=== PATIENT | male | born 1960 | race Caucasian/White ===

== ENCOUNTER → 2023-09-05 00:14 | Outpatient (CLI) | payer BC, SELFPAY ==
--- NOTE | 2023-09-05 | ETT_ITS ---
APPROVED REPORT Exam: Exercise Treadmill Patient Location: Out-Patient Room/Bed: Stress Nurse: Estee Ochoa RN Ordering Provider:CHAPITO VICENTE, Contact Number: [phone] BMI: 27.60 Baseline Rhythm: Sinus Rhythm Indications: Unspecified afib, Medical History Medical History: Chest pain, COPD, dyspnea, HLD, nicotine dependence, MALATHI, PAF, asthma, BPH, Walker-Bernice hnson Syndrome Cardiac Medications: None Allergies: Cephalosporins Cardiac Risk Factors: Family hx, asthma, HLD, COPD, former smoker Previous Cardiac Procedures: None Pretest Chest Pain Characteristics: None Exercise History: Physically active Physical Disabilities: None Lung Sounds: Clear to auscultation Heart Sounds: Regular Stress Test Details Test: Exercise stress testing was performed using a Adam protocol. Rest Stress HR Resting HR Supine: 60 bpm Max Heart Rate (APMHR): 155 bpm Resting HR Standin bpm Target HR (85% APMHR): 132 bpm Max HR Achieved: 135 bpm % of APMHR: 87 Recovery HR: 77 bpm HR response to stress: Normal HR response to stress BP Resting BP Supine: 140/84 mmHg Resting BP Standin/86 mmHg Max BP: 192/76 mmHg Recovery BP: 146/78 mmHg BP response to stress: Normal blood pressure response to stress. ECG Resting ECG: Sinus Rhythm Ectopy: None Stress ECG: Sinus Tachycardia ST Change: No significant ST segment changes noted Arrhythmia: None Recovery ECG: Sinus Rhythm Recovery ST Change: No significant ST segment changes noted Recovery Arrhythmia: None Clinical Reason for Termination: Target HR Achieved, Fatigue Stress Symptoms: General Fatigue Exercise duration: 09 min40 sec Highest Stage Reached: Stage 3: 3.4 mph at 14% grade. Exercise capacity: 11.24 METs Angina Score: None Gary Treadmill Score: 9.5 Rate Pressure Product: [id number] Stress ECG Conclusion 1. Resting electrocardiogram was normal 2. Patient exercised on the Adam protocol and completed workload of 11.24 METS 3. Normal heart rate and blood pressure response to exercise. The patient achieved 87% of predicted heart rate for age 4. There was no electrocardiographic evidence of myocardial ischemia 5. There were no significant dysrhythmias Gary Treadmill Score is 9.5 which is Low risk. Stress Test Summary STAGE Time (mins) Speed (mph) Grade (%) HR BP SpO2 SYMPTOMS METS Supine 60 140/84 96% Standing 67 138/86 1 3 1.7 10 86 160/78 97% 4.5 2 6 2.5 12 101 182/68 98% 7 3 9 3.4 14 133 98% 10 1 min recovery 103 192/76 97% 3 min recovery 70 174/76 98% 6 min recovery 77 146/78
== END ==
PROVIDERS: PCP Nurse Practitioner Family; Visit Provider Registered Nurse
DX: I48.91 Unspecified atrial fibrillation (principal)
CPT/HCPCS: 93017

== ENCOUNTER 2024-01-07 22:04 | Outpatient (REF) | payer BC, SELFPAY ==
[2024-01-07 21:55] LABS: Abs Immature Grans 0.03 10^3/uL (0.0-0.06); Absolute Basophil Count 0.04 10^3/uL (0.0-0.2); Absolute Eosinophil Count 0.32 10^3/uL (0.0-0.7); Absolute Lymphocyte Count 1.99 10^3/uL (1.2-3.4); Absolute Monocyte Count 0.39 10^3/uL (0.1-0.8); Absolute Neutrophil Count 4.63 10^3/uL (1.2-6.7); Basophils % 0.5 %; Eosinophils % 4.3 %; HCT 43.7 % (40.0-50.0); HGB 15.2 g/dL (13.5-17.5); Immature Grans % 0.4 %; Lymphocytes % 26.9 %; MCH 31.4 pg (27.0-33.0); MCHC 34.8 % (32.0-36.0); MCV 90 fL (80-95); MPV 10.6 fL (8.0-11.0); Monocytes % 5.3 %; Neutrophils % 62.6 %; Platelet Count 240 10^3/uL (130-400); RBC 4.84 10^6/uL (4.36-5.78); RDW 12.3 % (11.8-14.1); RDW-SD 40.2 fL
[2024-01-07 21:59] LABS: Anion Gap 7.5 mmol/L (3-11); BUN 20 mg/dL (7-18); CO2 26.5 mmol/L (21.0-32.0); CREATININE 0.9 mg/dL (0.70-1.30); Calcium 8.8 mg/dL (8.5-10.1); Chloride 104 mmol/L (98-107); Estimated GFR 94.78 (mL/min/1.73m2); Glucose 140 mg/dL (74-106); Potassium 3.7 mmol/L (3.5-5.1); Sodium 138 mmol/L (136-145)
== END 2024-01-07 22:05 | disposition home or self-care (01) ==
LOC: LBN 22:04
PROVIDERS: PCP Nurse Practitioner Family; Visit Provider Nurse Practitioner Family
DX: L03.90 Cellulitis, unspecified (principal)
CPT/HCPCS: 80048; 85025

== ENCOUNTER 2024-01-08 12:44 | Observation (INO) | payer BC, SELFPAY ==
[2024-01-08 12:45] VITALS: BP 143/80; PULSE 78; RESP 16; TEMP 36.3; O2SAT 95
--- NOTE | 2024-01-08 13:00 | DI.CT_ITS ---
Exam(s) CT UPPER EXTREMITY LT W EXAM: CT UPPER EXTREMITY LT W CLINICAL HISTORY: cellulitis in AC, worsening with systemic sx.. TECHNIQUE: Imaging Protocol: Axial computed tomography images with coronal and sagittal reformatted images were created and reviewed. CONTRAST MATERIAL: Intravenous: Omnipaque 350. Contrast Volume: 100 ML COMPARISON: No exams were available for comparison FINDINGS: Bones: The osseous structures and articular surfaces are intact. Bony alignment is satisfactory. N o evidence of osteomyelitis. The joint spaces are appropriate for the patient's age. No lytic or sc lerotic lesions are identified. Soft Tissues: No evidence of an abscess. There is mild infiltration of the subcutaneous fat along th e dorsum of the upper extremity. This may represent a cellulitis. The visualized lungs are clear. Enhancement: No abnormal enhancement is identified. IMPRESSION: 1. Possible mild cellulitis along the posterior aspect of the upper arm. No focal fluid collection i s seen to suggest an abscess. 2. No CT evidence of osteomyelitis. RADIATION DOSE DELIVERED: Total DLP Total DLP DATA REPOSITORY: All CT scans at this facility are submitted to the National Radiology Data Registry (NRDR) Dose Index Registry (DIR) with the [employer] (A[employer]). RADIATION OPTIMIZATION: All CT scans at this facility use at least one of these dose optimization te chniques: automated exposure control; mA and/or kV adjustment per patient size (includes targeted exa ms where dose is matched to clinical indication); or iterative reconstruction.
--- NOTE | 2024-01-08 13:11 | ED.GENADUL_ITS ---
Discharge Plan Discharge Details Chief Complaint: Cellulitis Primary Care Provider: Constance Bourgeois ED Provider: Adelia Cartagena Home Meds and New Rx's Prescriptions: No Action ibuprofen 200 mg capsule 200 mg PO Q6H PRN multivitamin Tablet 1 tab PO DAILY sulfamethoxazole-trimethoprim [Bactrim DS] 800-160 mg tablet 1 tab PO BID Qty: 14 0RF omega 6-ohq-etn-fish oil [Fish Oil] 60-90-500 mg capsule 1 cap PO DAILY albuterol sulfate 1.25 mg/3 mL solution for nebulization 1.25 mg inhalation QID PRN (Reason: shortness of breath or wheezing) Qty: 90 0RF albuterol sulfate 90 mcg/actuation HFA aerosol inhaler 2 puff inhalation Q6H PRN (Reason: shortness of breath or wheezing) Qty: 8.5 1RF HPI General Date/Time Provider Initiated Documentation: 01/08/24 12:45 . HPI Narrative: Marcin is a 63year old male who presents to the emergency department today for evaluation of worsening cellulitis to the left AC with tremors and generalized fatigue/malaise. He reports that 2 weeks ago he got a puncture wound from a stick that poked him at work through his sweatshirt. He developed redness immediately surrounding the area that evening, diagnosed with cellulitis on 1111 and treated with 5 days of Augmentin. He started having fatigue yesterday and increasing redness to the area, saw PCP at [facility] and started on Bactrim. Today he is feeling much more fatigued, general malaise, discomfort to the left AC and elbow with movement, and tenderness to his lymph nodes in his left axilla. His says that he is looking unwell, lower energy than his usual self. He denies recorded fever/chills, congestion, sore throat, cough, nausea/vomiting, recent ill contacts, distal numbness/tingling. Denies history of immunocompromise. He does have a history of drug-resistant infection in the past that required hospitalization for 12 days and IV antibiotics. He has been able to tolerate cephalosporins (keflex) IV in the past; does not think that he has a cephalosporin allergy despite it being on his record. Past medical history is significant for COPD, HLD, Walker-Don syndrome, and paroxysmal A-fib. Physical exam remarkable for tenderness and erythema to the left AC. He does have full range of motion to left elbow, but says that this causes discomfort. Approximately 5 mm diameter lesion noted to the ulnar aspect of the left AC, no active drainage. It is tender to palpation, no obvious area of induration underlying. Surrounding erythema approx 4 diameter around lesion. +pulses distally, brisk cap refill. No obvious axillary lymphadenopathy, though he does have tenderness with palpation of lymph nodes. Marcin does appear fatigued and flushed, he is alert and oriented, in no acute distress. D/dx includes but is not limited to: Cellulitis, abscess, extension of infection into deep space I independently interpreted the following tests: CRP elevated at 0.93. CBC, BMP, sed rate all unremarkable. While in the emergency department, Marcin received Toradol for discomfort with good improvement in pain. CT of left upper extremity reassuring, no abscess or local fluid collection noted. Patient has failed outpatient management with antibiotics x 2, will admit for IV antibiotics. Rocephin and vancomycin initiated. Discussed case with Dr. Miranda, hospitalist. He is agreeable plan of care. Related Data Home Medications ?Medication ?Instructions ?Recorded ?Confirmed ibuprofen 200 mg capsule 200 mg PO Q6H PRN 07/23/23 01/08/24 multivitamin 1 tab PO DAILY 07/23/23 01/08/24 albuterol sulfate 1.25 mg/3 mL 1.25 mg (3 mL) inhalation QID PRN 10/11/23 01/08/24 solution for nebulization shortness of breath or wheezing #90 mL albuterol sulfate 90 mcg/actuation 2 puff inhalation Q6H PRN 10/11/23 01/08/24 aerosol inhaler shortness of breath or wheezing #8.5 grams omega 2-olp-jug-fish oil 60 mg-90 1 cap PO DAILY 12/03/23 01/08/24 mg-500 mg capsule (Fish Oil) sulfamethoxazole 800 1 tab PO BID #14 tabs 01/07/24 01/08/24 mg-trimethoprim 160 mg tablet (Bactrim DS) Previous Rx's ?Medication ?Instructions ?Recorded albuterol sulfate 1.25 mg/3 mL 1.25 mg (3 mL) inhalation QID PRN 10/11/23 solution for nebulization shortness of breath or wheezing #90 mL albuterol sulfate 90 mcg/actuation 2 puff inhalation Q6H PRN 10/11/23 aerosol inhaler shortness of breath or wheezing #8.5 grams sulfamethoxazole 800 1 tab PO BID #14 tabs 01/07/24 mg-trimethoprim 160 mg tablet (Bactrim DS) Allergies Allergy/AdvReac Type Severity Reaction Status Date / Time Cephalosporins Allergy Intermediate Unknown Verified 01/08/24 13:37 General Stated Complaint: GenMedical JOAO: 3 Review of Systems Narrative: see HPI Exam Const General: cooperative, comfortable, no acute distress, well developed and ill appearing Nutritional Appearance: average body habitus Orientation: alert and oriented x3 Resp Effort & Inspection: normal respiratory effort and able to speak in complete sentences Skin Rashes: rashes noted left elbow borders, color with an erythematous base, tender and other (Approximately 4 inch diameter area of erythema and tenderness surrounding 5 mm shallow ulceration); fluctuant not assessed Full body images: 2 1. area of cellulitis Neuro General: patient alert, patient oriented x3, gait normal, tone normal, moves all extremities and no focal motor deficits Cognition: normal cognition Speech: speech normal Sensory Exam: no sensory deficits noted Extrem Left upper extremity: full ROM, normal capillary refill, no joint enlargement and elbow/forearm (warmth and swelling to cellulitis, L AC) Details: tenderness, swelling, warmth and distal pulses intact; no crepitus and no deformity Course Vital Signs Vital signs: Vital Signs Temperature 36.3 C L 01/08/24 12:45 Pulse 78 01/08/24 12:45 Respiratory Rate 16 01/08/24 12:45 Blood Pressure 143/80 H 01/08/24 12:45 Pulse Oximetry 95 01/08/24 12:45 Temperature 36.3 C L 01/08/24 12:45 Temperature Source Temporal Artery Scan 01/08/24 12:45 Pulse 78 01/08/24 12:45 Respiratory Rate 16 01/08/24 12:45 Respiratory Effort Normal, Non-Labored 01/08/24 12:51 Blood Pressure 143/80 H 01/08/24 12:45 Pulse Oximetry 95 01/08/24 12:45 Oxygen Delivery Method Room Air 01/08/24 12:45 Oxygen Flow Rate 0 01/08/24 12:45 Pain Level 7 01/08/24 12:45 Lab/Test Results Lab/Test Results: 01/08/24 13:09 Blood Blood Culture - Pending 01/08/24 13:09 Blood Blood Culture - Pending Medical Decision Making Imaging Data Radiologic Study: Radiologist's impression: Accession No. : [id number] Creator : TEE LINDA Dictator : TEE LINDA Predatory Animal Trapper : Brick Veneer Maker : TEE LINDA Approver2 : Report Date : 01/08/2024 14:28:29 * Exam(s) CT UPPER EXTREMITY LT W EXAM: CT UPPER EXTREMITY LT W CLINICAL HISTORY: cellulitis in AC, worsening with systemic sx.. TECHNIQUE: Imaging Protocol: Axial computed tomography images with coronal and sagittal reformatted images were created and reviewed. CONTRAST MATERIAL: Intravenous: Omnipaque 350. Contrast Volume: 100 ML COMPARISON: No exams were available for comparison FINDINGS: Bones: The osseous structures and articular surfaces are intact. Bony alignment is satisfactory. No evidence of osteomyelitis. The joint spaces are appropriate for the patient's age. No lytic or sclerotic lesions are identified. Soft Tissues: No evidence of an abscess. There is mild infiltration of the subcutaneous fat along the dorsum of the upper extremity. This may represent a cellulitis. The visualized lungs are clear. Enhancement: No abnormal enhancement is identified. IMPRESSION: 1. Possible mild cellulitis along the posterior aspect of the upper arm. No focal fluid collection is seen to suggest an abscess. 2. No CT evidence of osteomyelitis. Quality:SDOH Health Related Social Needs: 2 No Data to Display PFSH All Active Problems (Updated 12/20/23 @ 16:01 by Duncan Romero MD) Scrotal pain (Acute) Epididymal cyst (Acute) Generalized skin lesions (Acute) PAF (paroxysmal atrial fibrillation) (Acute) Lipomatosis dolorosa (Acute) Lateral epicondylitis (Acute) Insomnia (Acute) Glucose intolerance (impaired glucose tolerance) (Acute) Walker-Don syndrome (Acute) [place] lesion of lung (Acute) COPD (chronic obstructive pulmonary disease) (Chronic) Cervical spondylosis (Acute) BPH without urinary obstruction (Acute) Benign lipomatous tumor (Acute) Actinic keratosis (Acute) MALATHI (obstructive sleep apnea) (Chronic) Wearing CPAP every night Hypercholesteremia (Acute) Medical History Elevated bilirubin Pleuritic pain Right shoulder pain Exposure to asbestos Left cornea abrasion Surgical History H/O hernia repair Hx of cholecystectomy Family History Mother Hypertension Father Cancer Social History Smoking/Tobacco Use Status: Former Tobacco Use tobacco type: cigarettes Quit Date: 02/11/99 Quit status: has quit before Smoking risk assessment performed?: Yes Alcohol Intake: current Alcohol Intake frequency: a few times a week Alcohol type: beer Drug use: Rarely Substance use type: marijuana Adopted: No Household members: spouse Housing: house Number of Children: 3 number of grandchildren: 0 Communication Needs: None Education Level: college Details: BS Do you need help understanding health information?: Never current occupation: Retired Sexually active: Yes Do you think of yourself as: straight/heterosexual Current gender identity: male What is your relationship status?: How often do you talk on the phone with friends or family?: three or more times per week How often do you get together with friends or relatives?: three or more times per week How often do you attend advent or episcopal services?: 1-3 times per year Do you belong to any clubs or organized social groups?: no Panel score (0-1 are the most socially isolated patients): 2 What type of physical activity do you participate in: walking Duration: 45-60 minutes/day Frequency: daily Callie/Caodaism: Non cheondoism Special callie needs: No Seatbelt use: always Helmet use: Yes Helmet use: always Drive 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 or 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/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 Firearms in home: Yes Firearms unloaded and locked: Yes Do you feel safe at home: Yes Do you feel safe in your relationship?: Yes PAWSS Have you Been Recently Intoxicated or Drunk Within the Last 30 days?: No Have you Ever Experienced Previous Episodes of Alcohol Withdrawal?: No Have you ever Experienced Withdrawal Seizures?: No Have you ever Experienced Delirium Tremens(DT)s?: No Have you ever undergone Alcohol Rehabilitation Treatment (i.e, inpt ot outpatient treatment programs)?: No Have you ever Experienced Blackouts?: No Have you ever Combined Alcohol with other Downers within the last 90 days?: No Have you ever Combined Alcohol with any other Substance of Abuse during the last 90 days?: No Positive Blood Alcohol level on Presentation? [PCS.BAL]: No Evidence of Increased Autonomic Activity (i.e. HR>120, tremor, sweating, agitation, nausea)?: No Result: 0
[2024-01-08 13:32] LABS: Abs Immature Grans 0.04 10^3/uL (0.0-0.06); Absolute Basophil Count 0.02 10^3/uL (0.0-0.2); Absolute Eosinophil Count 0.38 10^3/uL (0.0-0.7); Absolute Lymphocyte Count 0.69 10^3/uL (1.2-3.4); Absolute Monocyte Count 0.37 10^3/uL (0.1-0.8); Absolute Neutrophil Count 6.97 10^3/uL (1.2-6.7); Basophils % 0.2 %; Eosinophils % 4.5 %; HGB 15.7 g/dL (13.5-17.5); Immature Grans % 0.5 %; Lymphocytes % 8.1 %; MCH 31.3 pg (27.0-33.0); MCHC 34.1 % (32.0-36.0); MCV 92 fL (80-95); MPV 9.3 fL (8.0-11.0); Monocytes % 4.4 %; Neutrophils % 82.3 %; Platelet Count 197 10^3/uL (130-400); RBC 5.02 10^6/uL (4.36-5.78); RDW 12.2 % (11.8-14.1); RDW-SD 41.1 fL; WBC 8.47 10^3/uL (4.4-10.8)
[2024-01-08] MEDS: Ketorolac 15 MG/ML VIAL IVP (13:32)
[2024-01-08] MEDS: Normal Saline Flush 10 ML SYR IVP ×3 (13:32→20:44)
[2024-01-08 13:34] LABS: ESR 3 mm/hr (0-20)
[2024-01-08 13:43] LABS: Anion Gap 9.9 mmol/L (3-11); BUN 20 mg/dL (7-18); C-Reactive Protein 0.93 mg/dL (<or=0.5); CO2 26.1 mmol/L (21.0-32.0); CREATININE 0.9 mg/dL (0.70-1.30); Calcium 8.7 mg/dL (8.5-10.1); Chloride 106 mmol/L (98-107); Estimated GFR 94.78 (mL/min/1.73m2); Glucose 106 mg/dL (74-106); Sodium 142 mmol/L (136-145)
[2024-01-08] MEDS: Normal Saline - Diluent 50 ML VIAL IJ (13:59)
[2024-01-08 14:18] VITALS: TEMP 36.8
--- NOTE | 2024-01-08 15:07 | HPE_ITS ---
Date of service: 01/08/24 Time of Service: 15:07 Assessment and Plan Assessment and plan (1) Cellulitis: Status: Acute Assessment and plan: Left upper extremity cellulitis without abscess as per CT Initially on Augmentin then on Bactrim as of 01/07/2024?failed therapy outpatient versus reaction to Bactrim Continue vancomycin and ceftriaxone initiated in the ED Pharmacy consult MRSA PCR Gram stain wound CBC in the morning Trend CRP?initial value slightly elevated (2) PAF (paroxysmal atrial fibrillation): Status: Acute Assessment and plan: Not currently on any AV josesito blocking agent?CCB?digitalis Appears to be rate control No anticoagulation medicine on board (3) COPD (chronic obstructive pulmonary disease): Status: Chronic Assessment and plan: No symptoms of exacerbation Continue nebulizer and inhaler as per home med regimen (4) Hypercholesteremia: Status: Acute Assessment and plan: No statin or other anti hypercholesteremia meds Takes fish oils at home- ordered (5) MALATHI (obstructive sleep apnea): Status: Chronic Assessment and plan: Continue CPAP as per home setting Discussed with Dr. Miranda History of Present Illness History of Present Illness Chief Complaint: Fatigue, cellulitis left upper extremity Narrative: This 63 years old male patient with past medical history of hypercholesterolemia, MALATHI with NIV at night, COPD, paroxysmal atrial fibrillation presented to the emergency department for evaluation of increased fatigue in the setting of left upper extremity cellulitis with ongoing treatment with Bactrim started on 01/07/2024 status post failed treatment with Augmentin. On arrival to the ED the patient was afebrile and hemodynamically stable. Workup in the ED was significant for the absence of leukocytosis, CRP at 0.93, normal ESR, unremarkable chemistry. Blood cultures were drawn and pending. CT of the left upper extremity showed mild colitis along the posterior aspect of the upper arm without fluid collection that would suggest an abscess. The ED provider initiated treatment with IV vancomycin and ceftriaxone. The patient has cephalosporin allergy listed but denies that this allergy is real. The hospitalist was consulted and patient admitted for evaluation and management of left upper extremity cellulitis in the setting of failed outpatient therapy. When met in the room, the patient confirmed that he was a full code and agreed to intubation if needed. In the ICU he is downgraded to floor status patient hypoxic down to room air today increased fatigue and nausea this morning night sweats and chills this week, denied dizziness, chills, fever, changes in vision, chest pain, abdominal pain, vomiting, diarrhea, constipation or dysuria. 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) COPD (chronic obstructive pulmonary disease) (Chronic) Cervical spondylosis (Acute) BPH without urinary obstruction (Acute) Benign lipomatous tumor (Acute) Actinic keratosis (Acute) MALATHI (obstructive sleep apnea) (Chronic) Wearing CPAP every night Hypercholesteremia (Acute) Medical History Elevated bilirubin Pleuritic pain Right shoulder pain Exposure to asbestos Left cornea abrasion Surgical History H/O hernia repair Hx of cholecystectomy Family History Mother Hypertension Father Cancer Social History Smoking/Tobacco Use Status: Former Tobacco Use tobacco type: cigarettes Quit Date: 02/11/99 Quit status: has quit before Smoking risk assessment performed?: Yes Alcohol Intake: current Alcohol Intake frequency: a few times a week Alcohol type: beer Drug use: Rarely Substance use type: marijuana Adopted: No Household members: spouse Housing: house Number of Children: 3 number of grandchildren: 0 Communication Needs: None Education Level: college Details: BS Do you need help understanding health information?: Never current occupation: Retired Sexually active: Yes Do you think of yourself as: straight/heterosexual Current gender identity: male What is your relationship status?: How often do you talk on the phone with friends or family?: three or more times per week How often do you get together with friends or relatives?: three or more times per week How often do you attend uatsdin or gnosticism services?: 1-3 times per year Do you belong to any clubs or organized social groups?: no Panel score (0-1 are the most socially isolated patients): 2 What type of physical activity do you participate in: walking Duration: 45-60 minutes/day Frequency: daily Callie/Holiness: Non worship Special callie needs: No Seatbelt use: always Helmet use: Yes Helmet use: always Drive 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 Firearms in home: Yes Firearms unloaded and locked: Yes Do you feel safe at home: Yes Do you feel safe in your relationship?: Yes Meds Allergies and Home Medications Allergies Allergy/AdvReac Type Severity Reaction Status Date / Time Cephalosporins Allergy Intermediate Unknown Verified 01/08/24 13:37 Home Medications ?Medication ?Instructions ?Recorded ?Confirmed ?Type ibuprofen 200 mg capsule 200 mg PO Q6H PRN 07/23/23 01/08/24 History multivitamin 1 tab PO DAILY 07/23/23 01/08/24 History albuterol sulfate 1.25 mg/3 mL 1.25 mg (3 mL) inhalation QID PRN 10/11/23 01/08/24 Rx solution for nebulization shortness of breath or wheezing #90 mL albuterol sulfate 90 mcg/actuation 2 puff inhalation Q6H PRN 10/11/23 01/08/24 Rx aerosol inhaler shortness of breath or wheezing #8.5 grams omega 6-bjy-rzc-fish oil 60 mg-90 1 cap PO DAILY 12/03/23 01/08/24 History mg-500 mg capsule (Fish Oil) sulfamethoxazole 800 1 tab PO BID #14 tabs 01/07/24 01/08/24 Rx mg-trimethoprim 160 mg tablet (Bactrim DS) Exam Narrative Exam Narrative: Constitutional The patient is sitting in chair comfortable HENMT: Facial structures with normal appearance Eyes: Well aligned Neck: Normal ROM Neuro:alert and oriented to self, person, place, time and situation. No neurological focal deficit Chest:Chest is symmetrical and normal appearance Resp: Normal respiratory pattern, speaks in full sentences, unlabored breathing, clear lung bilaterally Cardio: regular rhythm, S1, S2, no murmur, capillary refill<3 sec., bilateral radial and dorsalis pedis pulses are positive, palpable GI: Abdomen is not distended, soft and non tender, bowel sounds are present : Negative Costovertebral angle tenderness, no bladder distension Back/spine/Pelvis: No back tenderness, normal alignment Integumentary: Redness to left elbow with small concave wound w/o drainage, no induration felt, no streaking Extremities: strength 5/5 to bilateral lower and upper extremities Psych: RASS 0, congruent mood and normal affect. Results Labs 01/08/24 13:20 01/08/24 13:20 Labs: Laboratory Results - last 24 hr 01/08/24 13:20 WBC 8.47 RBC 5.02 Hgb 15.7 Hct 46.0 MCV 92 MCH 31.3 MCHC 34.1 RDW 12.2 Plt Count 197 MPV 9.3 Immature Gran % 0.5 Neutrophils % 82.3 Lymphocytes % 8.1 Monocytes % 4.4 Eosinophils % 4.5 Basophils % 0.2 Nucleated RBC % 0.0 Absolute Neutrophils 6.97 H Absolute Lymphocytes 0.69 L Absolute Monocytes 0.37 Absolute Eosinophils 0.38 Absolute Basophils 0.02 ESR 3 Sodium 142 Potassium 4.0 Chloride 106 Carbon Dioxide 26.1 Anion Gap 9.9 BUN 20 H Creatinine 0.9 Est GFR (CKD-EPI 2020) 94.78 Glucose 106 Calcium 8.7 C-Reactive Protein 0.93 H Last Vital Signs Temp 36.8 C 01/08/24 14:18 Pulse 78 01/08/24 12:45 Resp 16 01/08/24 12:45 BP 143/80 H 01/08/24 12:45 Pulse Ox 95 01/08/24 12:45 PAWSS Have you Been Recently Intoxicated or Drunk Within the Last 30 days?: No Have you Ever Experienced Previous Episodes of Alcohol Withdrawal?: No Have you ever Experienced Withdrawal Seizures?: No Have you ever Experienced Delirium Tremens(DT)s?: No Have you ever undergone Alcohol Rehabilitation Treatment (i.e, inpt ot outpatient treatment programs)?: No Have you ever Experienced Blackouts?: No Have you ever Combined Alcohol with other Downers within the last 90 days?: No Have you ever Combined Alcohol with any other Substance of Abuse during the last 90 days?: No Positive Blood Alcohol level on Presentation? [PCS.BAL]: No Evidence of Increased Autonomic Activity (i.e. HR>120, tremor, sweating, agitation, nausea)?: No Result: 0 Time Spent Time spent with Patient: >75 minutes Time was spent: preparing to see the patient(eg.review tests), obtaining and/or reviewing separately otained hiistory, ordering medications,tests, procedures, referring, communicating with other health assistant child care teacher, indepentently interpreting results, counseling the patient and care coordination
[2024-01-08] MEDS: cefTRIAXone 1 GM/50 ML BAG IVPB (15:09)
[2024-01-08] MEDS: VANCOMYCIN 1,500 MG in Normal Saline 250 ML 166.6666 MG IVPB (15:23)
--- NOTE | 2024-01-08 17:54 | RESPIRATORY ---
Spoke with patient about home CPAP unit and patient advised he is unsure of the settings but knows it is a auto-titrating CPAP with full face mask, DME: [employer]. Patient unable to get someone to bring home machine in for use tonight but willing to trial hospital machine.
[2024-01-08] MEDS: Ibuprofen 200 MG TAB PO ×2 (18:08→22:47)
[2024-01-08] MEDS: Enoxaparin 40 MG/0.4 ML SYR SC (18:08)
--- NOTE | 2024-01-08 18:47 | W.PC.ACHO ---
Registration Status: Primary Language: Preferred Language: ED Information & Data Chief Complaint GenMedical 01/08/24 13:17 Triage Note presented withpuncture wound 01/08/24 12:45 2 weeks this saturday, went to the walking clinic x 1 week ago and was placed on antibiotic. went back to his PCP and was prescribed new antibiotic, was advised to come the ER if symptoms worsens. Medical / Surgical History (Last Reviewed 11/27/23 @ 14:46 by Jyothi Palomino NP) Elevated bilirubin Pleuritic pain Right shoulder pain Exposure to asbestos Left cornea abrasion (Last Reviewed 11/27/23 @ 14:46 by Jyothi Palomino NP) H/O hernia repair Hx of cholecystectomy Most Recent Vital Signs Temperature 36.8 C 01/08/24 14:18 Temperature Source Oral 01/08/24 14:18 Pulse 78 01/08/24 12:45 Respiratory Rate 16 01/08/24 12:45 Respiratory Effort Normal, Non-Labored 01/08/24 12:51 Blood Pressure 143/80 H 01/08/24 12:45 Pulse Oximetry 95 01/08/24 12:45 Oxygen Delivery Method Room Air 01/08/24 17:24 Oxygen Flow Rate 0 01/08/24 17:24 Pain Level 5 01/08/24 18:08 Allergies Cephalosporins Allergy (Intermediate, Verified 01/08/24 13:37) Unknown Precautions Isolation Standard precaution 01/08/24 12:51 Active Medications Generic Name Dose Route Start Last Admin Trade Name Freq PRN Reason Stop Dose Admin Acetaminophen 650 mg 01/08/24 18:00 01/08/24 18:10 Acetaminophen 325 Mg Tab PO Not Given Q6H RADHA Enoxaparin Sodium 40 mg 01/08/24 18:00 01/08/24 18:08 Enoxaparin 40 Mg/0.4 Ml Syr SC 40 mg Q24H RADHA Administration Ibuprofen 200 mg 01/08/24 17:25 01/08/24 18:08 Ibuprofen 200 Mg Tab PO 200 mg Q6H PRN PRN Administration IV IV Catheter Type [Right Peripheral IV Antecubital] IV Catheter Gauge [Right 18 Antecubital] Diet Orders Category Date Time Status Heart Healthy Eating [DIET] Nutrition 01/08/24 Dinner Active Diagnostics 01/08/24 Range/Units 13:20 WBC 8.47 (4.4-10.8) 10^3/uL RBC 5.02 (4.36-5.78) 10^6/uL Hgb 15.7 (13.5-17.5) g/dL Hct 46.0 (40.0-50.0) % MCV 92 (80-95) fL MCH 31.3 (27.0-33.0) pg MCHC 34.1 (32.0-36.0) % RDW 12.2 (11.8-14.1) % Plt Count 197 (130-400) 10^3/uL MPV 9.3 (8.0-11.0) fL Immature Gran % 0.5 % Neutrophils % 82.3 % Lymphocytes % 8.1 % Monocytes % 4.4 % Eosinophils % 4.5 % Basophils % 0.2 % Nucleated RBC % 0.0 (0.0-0.3) % Absolute Neutrophils 6.97 H (1.2-6.7) 10^3/uL Absolute Lymphocytes 0.69 L (1.2-3.4) 10^3/uL Absolute Monocytes 0.37 (0.1-0.8) 10^3/uL Absolute Eosinophils 0.38 (0.0-0.7) 10^3/uL Absolute Basophils 0.02 (0.0-0.2) 10^3/uL ESR 3 (0-20) mm/hr Sodium 142 (136-145) mmol/L Potassium 4.0 (3.5-5.1) mmol/L Chloride 106 (98-107) mmol/L Carbon Dioxide 26.1 (21.0-32.0) mmol/L Anion Gap 9.9 (3-11) mmol/L BUN 20 H (7-18) mg/dL Creatinine 0.9 (0.70-1.30) mg/dL Est GFR (CKD-EPI 2020) 94.78 (mL/min/1.73m2) Glucose 106 (74-106) mg/dL Calcium 8.7 (8.5-10.1) mg/dL C-Reactive Protein 0.93 H (<or=0.5) mg/dL 01/08/24 13:50 Blood Culture - Pending Blood 01/08/24 13:20 Blood Culture - Pending Blood Intake and Output - 24 Hour Total 01/08/24 12:44 thru 01/08/24 17:03 Intake Total 310 Balance 310 Weight 99.79 kg Intake: IV 310 Falls Risk Assessment History of Falls No History 01/08/24 17:24 Contributing Factors No Factors 01/08/24 17:24 Ambulatory Aids Independent 01/08/24 17:24 Tubes/Lines W/no contributing factors 01/08/24 17:24 Gait Evaluation No gait disturbance 01/08/24 17:24 Cognition No cognitive impairment 01/08/24 17:24 Fall Total Score 10 01/08/24 17:24 Level of Risk Standard/Low Risk 01/08/24 17:24 Problems (Last Reviewed 11/27/23 @ 14:46 by Jyothi Palomino NP) Cellulitis (Acute) PAF (paroxysmal atrial fibrillation) (Acute) COPD (chronic obstructive pulmonary disease) (Chronic) MALATHI (obstructive sleep apnea) (Chronic) Hypercholesteremia (Acute) Notes 01/08/24 17:54 Respiratory by Lauren Jaime Spoke with patient about home CPAP unit and patient advised he is unsure of the settings but knows it is a auto-titrating CPAP with full face mask, DME: [employer]. [facility] machine. Initialized on 01/08/24 17:54 - END OF NOTE v v v v v v v v v Sending and/or Receiving Nurses: Please use comment section below to note any information pertinent to the patient hand-off not included above. Information / Comments: Patient being admitted for cellulitis requiring IV ABX. Patient arrived to floor at 17:10. Report received from: Margo @ 16:50
[2024-01-08 19:12] VITALS: BP 151/72; PULSE 82; RESP 18; TEMP 37; O2SAT 96
[2024-01-08 19:58] VITALS: BP 151/72; PULSE 82; RESP 18; TEMP 37; O2SAT 96
[2024-01-08 22:04] LABS: MRSA PCR Negative (Negative)
[2024-01-08 22:54] VITALS: BP 139/79; PULSE 62; RESP 17; TEMP 36.5; O2SAT 95
[2024-01-08 23:22] VITALS: RESP 14; O2SAT 96
[2024-01-09 02:57] VITALS: BP 136/79; PULSE 64; RESP 16; TEMP 36; O2SAT 96
[2024-01-09 06:37] LABS: Abs Immature Grans 0.02 10^3/uL (0.0-0.06); Absolute Basophil Count 0.03 10^3/uL (0.0-0.2); Absolute Eosinophil Count 0.53 10^3/uL (0.0-0.7); Absolute Lymphocyte Count 1.27 10^3/uL (1.2-3.4); Absolute Monocyte Count 0.42 10^3/uL (0.1-0.8); Absolute Neutrophil Count 3.34 10^3/uL (1.2-6.7); Basophils % 0.5 %; Eosinophils % 9.4 %; HCT 44.4 % (40.0-50.0); HGB 15.1 g/dL (13.5-17.5); Immature Grans % 0.4 %; Lymphocytes % 22.6 %; MCH 31.1 pg (27.0-33.0); MCV 92 fL (80-95); MPV 9.5 fL (8.0-11.0); Monocytes % 7.5 %; Neutrophils % 59.6 %; Platelet Count 176 10^3/uL (130-400); RBC 4.85 10^6/uL (4.36-5.78); RDW 12.3 % (11.8-14.1); RDW-SD 41.1 fL; WBC 5.61 10^3/uL (4.4-10.8)
[2024-01-09 06:42] LABS: ESR 4 mm/hr (0-20)
[2024-01-09 06:55] LABS: BUN 12 mg/dL (7-18); CREATININE 0.8 mg/dL (0.70-1.30); Calcium 8.5 mg/dL (8.5-10.1); Chloride 108 mmol/L (98-107); Estimated GFR 98.21 (mL/min/1.73m2); Glucose 101 mg/dL (74-106); Potassium 3.9 mmol/L (3.5-5.1); Sodium 144 mmol/L (136-145)
[2024-01-09 07:52] VITALS: BP 130/69; PULSE 66; RESP 22; TEMP 36.8; O2SAT 96
[2024-01-09] MEDS: Omega-3 Fatty Acids 1000 MG CAP PO (08:22)
[2024-01-09] MEDS: Normal Saline Flush 10 ML SYR IVP ×6 (08:22→19:25)
[2024-01-09] MEDS: metroNIDAZOLE 500 MG/100 ML BAG 100 MG IVPB ×2 (08:22→16:37)
[2024-01-09] MEDS: Multivitamin TAB 1 TAB PO (08:22)
--- NOTE | 2024-01-09 09:18 | PGE_ITS ---
Date of Service Date of service: 01/09/24 Time of Service: 09:18 Assessment and Plan Assessment and plan (1) Cellulitis: Status: Acute Assessment and plan: On admission : Left upper extremity cellulitis without abscess as per CT Initially on Augmentin then on Bactrim as of 01/07/2024?failed therapy Continue vancomycin and ceftriaxone Blood Cx result still pending Pharmacy ongoing consult for Vancomycin MRSA PCR nares - negative but awaiting blood Cx results at 24 hours to d/c vancomycin if no GPC in cluster metronidazole added d/t report of blotchy spots to upper arm that egressed from puncture site on arrival as well as night sweats. Patient reported puncture from wet branch from the ground Gram stain wound -negative CRP?initial value slightly elevated will repeat in AM (2) PAF (paroxysmal atrial fibrillation): Status: Acute Assessment and plan: Regular rhythm heard. Not currently on any AV josesito blocking agent?CCB?digitalis Not on anticoagulation medicine (3) COPD (chronic obstructive pulmonary disease): Status: Chronic Assessment and plan: Remains stbale w/o symptoms of exacerbation Ongoing nebulizer and inhaler as per home med regimen (4) Hypercholesteremia: Status: Acute Assessment and plan: No statins or other anti hypercholesteremia meds on records Takes fish oils at home- ordered F/U outpatient (5) MALATHI (obstructive sleep apnea): Status: Chronic Assessment and plan: Continue CPAP as per home setting was unable to have his home device in Discussed with Dr. Miranda Subjective Subjective Patient reports: no new complaints, feels better, tolerating liquids well, tolerating a regular diet, voiding w/o difficulty, flatus, afebrile and other (night sweats, wound drainage ); denies diarrhea, nausea, vomiting or shortness of breath Exam Narrative Exam Narrative: Constitutional The patient is sitting in chair comfortable HENMT: Facial structures with normal appearance Neuro:alert and oriented X4. No neurological focal deficit Resp: Unlabored breathing, clear lung bilaterally Cardio: regular rhythm, S1, S2, no murmur,bilateral radial and dorsalis pedis pulses are positive, palpable GI: Abdomen is not distended, soft and non tender, bowel sounds are present : Negative Costovertebral angle tenderness Back/spine/Pelvis: No back tenderness, normal alignment Integumentary: Reduced redness area to left elbow with small concave wound w/o drainage, no induration felt, no streaking, no limited ROM Psych: RASS 0, congruent mood and normal affect. Objective Last Vital Signs Temp 36.8 C 01/09/24 07:52 Pulse 66 01/09/24 07:52 Resp 22 01/09/24 07:52 BP 130/69 01/09/24 07:52 Pulse Ox 96 01/09/24 07:52 Laboratory Results - last 24 hr 01/08/24 01/08/24 01/09/24 13:20 20:33 05:48 WBC 8.47 5.61 RBC 5.02 4.85 Hgb 15.7 15.1 Hct 46.0 44.4 MCV 92 92 MCH 31.3 31.1 MCHC 34.1 34.0 RDW 12.2 12.3 Plt Count 197 176 MPV 9.3 9.5 Immature Gran % 0.5 0.4 Neutrophils % 82.3 59.6 Lymphocytes % 8.1 22.6 Monocytes % 4.4 7.5 Eosinophils % 4.5 9.4 Basophils % 0.2 0.5 Nucleated RBC % 0.0 0.0 Absolute Neutrophils 6.97 H 3.34 Absolute Lymphocytes 0.69 L 1.27 Absolute Monocytes 0.37 0.42 Absolute Eosinophils 0.38 0.53 Absolute Basophils 0.02 0.03 ESR 3 4 Sodium 142 144 Potassium 4.0 3.9 Chloride 106 108 H Carbon Dioxide 26.1 27.0 Anion Gap 9.9 9.0 BUN 20 H 12 Creatinine 0.9 0.8 Est GFR (CKD-EPI 2020) 94.78 98.21 Glucose 106 101 Calcium 8.7 8.5 C-Reactive Protein 0.93 H MRSA (TEM-PCR) Negative PAWSS Have you Been Recently Intoxicated or Drunk Within the Last 30 days?: No Have you Ever Experienced Previous Episodes of Alcohol Withdrawal?: No Have you ever Experienced Withdrawal Seizures?: No Have you ever Experienced Delirium Tremens(DT)s?: No Have you ever undergone Alcohol Rehabilitation Treatment (i.e, inpt ot outpatient treatment programs)?: No Have you ever Experienced Blackouts?: No Have you ever Combined Alcohol with other Downers within the last 90 days?: No Have you ever Combined Alcohol with any other Substance of Abuse during the last 90 days?: No Positive Blood Alcohol level on Presentation? [PCS.BAL]: No Evidence of Increased Autonomic Activity (i.e. HR>120, tremor, sweating, agitation, nausea)?: No Result: 0 Time Spent with Patient Time Spent with Patient: >50 minutes Time was spent: preparing to see the patient(eg.review tests), obtaining and/or reviewing separately otained hiistory, ordering medications,tests, procedures, referring, communicating with other health post acute care registered nurse, indepentently interpreting results, counseling the patient and care coordination
[2024-01-09] MEDS: VANCOMYCIN/WATER (PEG) 1.25 GM/250 ML BAG IVPB (09:33)
[2024-01-09 11:03] VITALS: BP 129/78; PULSE 63; RESP 22; TEMP 36.6; O2SAT 96
--- NOTE | 2024-01-09 11:26 | PHA.REVIEW2 ---
Pharmacy Admission Review Admission Clinical Review Admission Pharmacy Review: Cellulitis (Acute) PAF (paroxysmal atrial fibrillation) (Acute) Hypercholesteremia (Acute) Cephalosporins Allergy (Intermediate, Verified 01/08/24 13:37) Unknown Resuscitation Status Full Code Height 6 ft 2 in Weight 99.79 kg Pharmacy Admission Review Renal Dosing Renal Dosing: BUN 12 mg/dL (7-18) 01/09/24 05:48 Creatinine 0.8 mg/dL (0.70-1.30) 01/09/24 05:48 Medications needing adjustments: Reviewed (CrCl 92.95 mL/min, BUN decreased from 20) List of meds needing interventions: Current medications are okay Anticoagulation Anticoagulation: Hgb 15.1 g/dL (13.5-17.5) 01/09/24 05:48 Hct 44.4 % (40.0-50.0) 01/09/24 05:48 Plt Count 176 10^3/uL (130-400) 01/09/24 05:48 Creatinine 0.8 mg/dL (0.70-1.30) 01/09/24 05:48 DVT Prophylaxis: Reviewed Medications: Enoxaparin (40mg daily) Relevant Labs Relevant Labs: ESR 4 mm/hr (0-20) 01/09/24 05:48 Sodium 144 mmol/L (136-145) 01/09/24 05:48 Potassium 3.9 mmol/L (3.5-5.1) 01/09/24 05:48 Chloride 108 mmol/L (98-107) H 01/09/24 05:48 C-Reactive Protein 0.93 mg/dL (<or=0.5) H 01/08/24 13:20 Electrolytes, C-Reactive P, ESR: Reviewed Cardiac Review BP, HR, EF%: Reviewed (BP/HR WNL) QTc Review QTc: Reviewed (No EKG on file) IV to PO Switch IV Medications: Reviewed (ceftriaxone, metronidazole and vancomycin) Home Meds Home Med List reviewed: Reviewed Relevent Home Meds Not ordered & why?: Bactrim (now being treated with IV antibiotics) Current Meds Current Medication Order Review: Reviewed Pharmacy Antibiotic Review Relevant Labs: Relevant Labs 01/08/24 13:20 C-Reactive Protein 0.93 H WBC 5.61 10^3/uL (4.4-10.8) 01/09/24 05:48 Temperature 36.6 C Temperature 36.8 C Temperature 36.0 C Pharmacy Antibiotic Activity: C/S review and Reviewed, no change Comments: Patient is on ceftriaxone, vancomycin and metronidazole, day 1, for cellulitis. Current vancomycin dose is 1250mg q12h with predicted AUC of 561 and trough of 18.2. Ordered trough level for tomorrow, 01/09, at 0600 with morning labs. Blood and wound cultures currently pending.
[2024-01-09 14:30] VITALS: BP 118/71; PULSE 65; RESP 22; TEMP 36.6; O2SAT 95
--- NOTE | 2024-01-09 15:50 | NUR.NOTE ---
Nursing Note: Provider aware of cephalosporins allergy which was discussed in morning meeting, pt has ceftriaxone ordered. This order has not been d/c'ed as there has been no reaction per Kristin Jordan NP.
[2024-01-09] MEDS: cefTRIAXone 1 GM/50 ML BAG IVPB (16:06)
[2024-01-09] MEDS: Enoxaparin 40 MG/0.4 ML SYR SC (18:14)
[2024-01-09] MEDS: Ibuprofen 200 MG TAB 400 MG PO (19:24)
[2024-01-09] MEDS: Lactobacillus Acidophilus CAP 1 CAP PO (19:25)
[2024-01-09 19:39] VITALS: BP 131/81; PULSE 63; RESP 18; TEMP 36.5; O2SAT 97
[2024-01-09 23:03] VITALS: BP 117/66; PULSE 63; RESP 17; TEMP 35.9; O2SAT 97
[2024-01-10] MEDS: metroNIDAZOLE 500 MG/100 ML BAG 100 MG IVPB ×2 (00:31→08:21)
[2024-01-10] MEDS: Normal Saline Flush 10 ML SYR IVP ×2 (00:31→08:15)
[2024-01-10 03:09] VITALS: BP 122/72; PULSE 61; RESP 16; TEMP 36.4; O2SAT 97
[2024-01-10 06:20] LABS: Abs Immature Grans 0.02 10^3/uL (0.0-0.06); Absolute Basophil Count 0.02 10^3/uL (0.0-0.2); Absolute Eosinophil Count 0.45 10^3/uL (0.0-0.7); Absolute Lymphocyte Count 1.76 10^3/uL (1.2-3.4); Absolute Neutrophil Count 3.07 10^3/uL (1.2-6.7); Basophils % 0.3 %; Eosinophils % 7.9 %; HCT 43.3 % (40.0-50.0); HGB 14.8 g/dL (13.5-17.5); Immature Grans % 0.3 %; Lymphocytes % 30.8 %; MCH 31.3 pg (27.0-33.0); MCHC 34.2 % (32.0-36.0); MCV 92 fL (80-95); MPV 9.3 fL (8.0-11.0); Neutrophils % 53.7 %; Platelet Count 179 10^3/uL (130-400); RBC 4.73 10^6/uL (4.36-5.78); RDW 12.2 % (11.8-14.1); WBC 5.72 10^3/uL (4.4-10.8)
[2024-01-10 06:34] LABS: Anion Gap 8.2 mmol/L (3-11); BUN 14 mg/dL (7-18); C-Reactive Protein 0.57 mg/dL (<or=0.5); CO2 25.8 mmol/L (21.0-32.0); CREATININE 0.7 mg/dL (0.70-1.30); Calcium 8.2 mg/dL (8.5-10.1); Chloride 108 mmol/L (98-107); Estimated GFR 102.25 (mL/min/1.73m2); Glucose 104 mg/dL (74-106); Potassium 3.7 mmol/L (3.5-5.1); Sodium 142 mmol/L (136-145)
[2024-01-10 06:46] LABS: Vancomycin, Trough 2.3 ug/mL (10.0-20.0)
[2024-01-10 07:25] VITALS: BP 123/76; PULSE 64; RESP 18; TEMP 36.8; O2SAT 95
--- NOTE | 2024-01-10 08:10 | PDOC.CMIN ---
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) Instrumental Activities of Daily Living (ADLs): Independent Medications Medication Management: No Issues/Barriers identified Physical Functioning/Mobility Assistive Device: None Advance Directives Advance Directives: Do you have an Advance Directive: AD On File at [facility]: N 08/27/23 15:18 Date Asked 01/08/24 01/08/24 12:48 AD Date Reviewed COLST On File at [facility] COLST Date Scanned Code Status Resuscitation Status Full Code Insurance Coverage/Financial Issues Insurance: [place] of [place] Care Team Visit Care Team Role Provider Type Constance Bourgeois NP Primary Care Provider NURSE PRACTITIONER Adelia Gallegos Emergency Provider NURSE PRACTITIONER Alfonso Miranda Admit Provider [facility] STAFF PHYSICIAN Attending Provider Discharge Anticipated Barriers to Discharge: None Identified Patient/Family Education Needs: Review discharge instructions, discuss Ask Me Three Transportation: Private vehicle Plan: Singh is planning to discharge home via private vehicle with family. He will follow up with community providers and discharge plan of care as establised. No new services are anticipated at this time. [facility] All Active Problems (Updated 01/08/24 @ 15:17 by Adelia Gallegos) Cellulitis (Acute) Scrotal pain (Acute) Epididymal cyst (Acute) Generalized skin lesions (Acute) PAF (paroxysmal atrial fibrillation) (Acute) Lipomatosis dolorosa (Acute) Lateral epicondylitis (Acute) Insomnia (Acute) Glucose intolerance (impaired glucose tolerance) (Acute) Walker-Don syndrome (Acute) [place] lesion of lung (Acute) COPD (chronic obstructive pulmonary disease) (Chronic) Cervical spondylosis (Acute) BPH without urinary obstruction (Acute) Benign lipomatous tumor (Acute) Actinic keratosis (Acute) MALATHI (obstructive sleep apnea) (Chronic) Wearing CPAP every night Hypercholesteremia (Acute) Medical History Elevated bilirubin Pleuritic pain Right shoulder pain Exposure to asbestos Left cornea abrasion Surgical History H/O hernia repair Hx of cholecystectomy Family History Mother Hypertension Father Cancer Social History Smoking/Tobacco Use Status: Former Tobacco Use tobacco type: cigarettes Quit Date: 02/11/99 Quit status: has quit before Smoking risk assessment performed?: Yes Alcohol Intake: current Alcohol Intake frequency: a few times a week Alcohol type: beer Drug use: Rarely Substance use type: marijuana Adopted: No Household members: spouse Housing: house Number of Children: 3 number of grandchildren: 0 Communication Needs: None Education Level: college Details: BS Do you need help understanding health information?: Never current occupation: Retired Sexually active: Yes Do you think of yourself as: straight/heterosexual Current gender identity: male What is your relationship status?: How often do you talk on the phone with friends or family?: three or more times per week How often do you get together with friends or relatives?: three or more times per week How often do you attend confucianism or taoist services?: 1-3 times per year Do you belong to any clubs or organized social groups?: no Panel score (0-1 are the most socially isolated patients): 2 What type of physical activity do you participate in: walking Duration: 45-60 minutes/day Frequency: daily Callie/Yazidi: Non christian Special callie needs: No Seatbelt use: always Helmet use: Yes Helmet use: always Drive intox or ride w/intox front end loader driver: No Firearms in home: Yes Firearms unloaded and locked: Yes Do you feel safe at home: Yes Do you feel safe in your relationship?: Yes SDOH(Care Management) Screening Will the Patient Participate in the Screening?: Yes Do you worry about having a steady place to live?: no Problems where you live: no known problems In the past 12 months, have you had to go without electric, gas, oil or water in your home?: no Have you or anyone in your house had to go without enough food to eat?: no Has lack of transportation kept you from medical appointments or from doing things needed for daily living?: no Has anyone in your support network made you feel unsafe for any reason?: no
[2024-01-10] MEDS: Multivitamin TAB 1 TAB PO (08:15)
[2024-01-10] MEDS: Lactobacillus Acidophilus CAP 1 CAP PO (08:15)
[2024-01-10] MEDS: Omega-3 Fatty Acids 1000 MG CAP PO (08:15)
--- NOTE | 2024-01-10 09:45 | DSE_ITS ---
Date of service: 01/10/24 Time of Service: 09:49 DS: Diagnosis Discharge Diagnosis (1) Cellulitis: Status: Acute (2) PAF (paroxysmal atrial fibrillation): Status: Acute (3) COPD (chronic obstructive pulmonary disease): Status: Chronic (4) Hypercholesteremia: Status: Acute (5) MALATHI (obstructive sleep apnea): Status: Chronic Discharge Plan Disposition Patient Disposition: Home Condition: Improving Condition: Improving Discharge Details Reason For Visit: Cellulitis, fatigue Admit Date/Time: 01/08/24 15:28 Admit Provider: Alfonso Miranda Attending Provider: Alfonso Miranda Primary Care Provider: [facility] Hospital Course: This 63 years old male patient with past medical history of hypercholesterolemia, MALAHTI with NIV at night, COPD, paroxysmal atrial fibrillation presented to the emergency department for evaluation of increased fatigue in the setting of left upper extremity cellulitis with ongoing treatment with Bactrim started on 01/07/2024 status-post failed treatment with Augmentin. On arrival to the ED the patient was afebrile and hemodynamically stable. Workup in the ED was significant for the absence of leukocytosis,sligtly evlevated CRP at 0.93, normal ESR, and an unremarkable chemistry. CT of the left upper extremity showed mild colitis along the posterior aspect of the upper arm without fluid collection that would suggest an abscess. The ED provider initiated treatment with IV vancomycin and ceftriaxone. The patient has cephalosporin allergy listed but denies that this allergy is real. The hosp italist was consulted and patient admitted for evaluation and management of left upper extremity cellulitis in the setting of failed outpatient therapy. When met in the room, the patient confirmed that he was a full code and agreed to intubation if needed. The patient reported increased fatigue and nausea on the day of presentation well as night sweats and chills earlier this week. The patient denied dizziness, chills, fever, changes in vision, chest pain, abdominal pain, vomiting, diarrhea, constipation or dysuria. Patient reported noticing drainage to the dressing applied at primary care [facility] and on te first night of his stay. During the stay the treatment was continued with vancomycin and ceftriaxone, flagyl was added. MRSA PCR was negative. Wound gram stain was negative, blood cultures were negative at 24 hours, vancomycin was stopped.The patient remained afebrile, hemodynamically stable and feeling better. CRP is trending down. The patient will be discharge home today on oral metronidazole and cefpodoxime. A short course of probiotics has been ordered; this is to be taken 3 hours apart from all oral antibiotics. Mr Potter will have to follow-up with his PCP with 7 days of discharge. Discussed with Dr Lebron Home Meds and New Rx's Prescriptions: New cefpodoxime 200 mg tablet 200 mg PO BID Qty: 6 0RF Rx Instructions: must administer with a meal/food metronidazole 500 mg tablet 500 mg PO Q8H Qty: 11 0RF Bio-K plus 50 billion cell capsule,delayed release(DR/EC) 1 cap PO DAILY Qty: 5 0RF Rx Instructions: Take 3 hours before or 3 hours after antibiotics Continued ibuprofen 200 mg capsule 200 mg PO Q6H PRN multivitamin Tablet 1 tab PO DAILY omega 4-qiy-hpy-fish oil [Fish Oil] 60-90-500 mg capsule 1 cap PO DAILY albuterol sulfate 1.25 mg/3 mL solution for nebulization 1.25 mg inhalation QID PRN (Reason: shortness of breath or wheezing) Qty: 90 0RF albuterol sulfate 90 mcg/actuation HFA aerosol inhaler 2 puff inhalation Q6H PRN (Reason: shortness of breath or wheezing) Qty: 8.5 1RF Discontinued sulfamethoxazole-trimethoprim [Bactrim DS] 800-160 mg tablet 1 tab PO BID Qty: 14 0RF Discharge Instructions Stand Alone Forms: Nursing Discharge Form Referrals: Constance Bourgeois NP [Primary Care Provider] - 01/13/24 10:40 am (Follow-up with PCP on Saturday at 10:40 am instead of 11 am) Activity:: Activity as Tolerated Equipment/Supplies:: No Equipment Needed Diet:: heart healthy Discharge Orders Discharge Orders: Discharge Order (Routine); Ordered 01/10/24 Ordered By: Kristin Jordan DS: Summary Time Spent with Patient providing and/or coordinating discharge services: Greater than 30 minutes Status at Discharge Functional status at discharge: independent ambulation Overall status at discharge: patient is progressing back to baseline Mental Status: mental status grossly normal Speech and Movement: speech and movement normal Mood: congruent mood Affect: normal affect Quality:SDOH Health Related Social Needs: No Data to Display Exam Narrative Exam Narrative: Constitutional The patient is sitting in chair comfortable HENMT: Facial structures with normal appearance Neuro:alert and oriented X4. improved numbness to left fingers. Resp: Unlabored breathing, clear lung bilaterally Cardio: regular rhythm, S1, S2, no murmur,bilateral radial and dorsalis pedis pulses are positive, palpable GI: Abdomen is not distended, soft and non tender, bowel sounds are present Integumentary: Reduced redness area to left elbow with small concave wound w/o drainage, no induration felt, no streaking, no limited ROM Psych: RASS 0, congruent mood and normal affect. Psych Mental Status: mental status grossly normal Speech and Movement: speech and movement normal Mood: congruent mood Affect: normal affect DS: Data Vitals/I&O Vitals and I&O: Vital Signs Temperature 36.8 C 01/10/24 07:25 Temperature Source Tympanic 01/10/24 07:25 Pulse 64 01/10/24 07:25 Pulse Rhythm Regular 01/08/24 19:58 Respiratory Rate 18 01/10/24 07:25 Respiratory Effort Normal 01/08/24 19:58 Respiratory Depth Normal 01/08/24 19:58 Respiratory Pattern Normal 01/08/24 19:58 Blood Pressure 123/76 01/10/24 07:25 Pulse Oximetry 95 01/10/24 07:25 Oxygen Delivery Method Room Air 01/10/24 07:25 Oxygen Flow Rate 0 01/10/24 07:25 Fraction of Inspired Oxygen (FIO2) 21 01/09/24 22:34 Pain Level 3 01/10/24 07:25 Intake & Output 01/09/24 01/09/24 01/10/24 11:59 23:59 11:59 Intake Total 340 / 750 410 / 750 830 / 830 Balance 340 / 750 410 / 750 830 / 830 Intake: IV 100 / 510 410 / 510 110 / 110 Oral 240 / 240 720 / 720 Other: Urine Color Yellow Yellow Urine Appearance Clear Clear Urine Odor Normal Comment Pt is independent using bathroom. Stool Size Small Stool Characteristics Formed Data Completed and Pending Labs on day of discharge: Labs from last 24 hours 01/10/24 06:00 WBC 5.72 RBC 4.73 Hgb 14.8 Hct 43.3 MCV 92 MCH 31.3 MCHC 34.2 RDW 12.2 Plt Count 179 MPV 9.3 Immature Gran % 0.3 Neutrophils % 53.7 Lymphocytes % 30.8 Monocytes % 7.0 Eosinophils % 7.9 Basophils % 0.3 Nucleated RBC % 0.0 Absolute Neutrophils 3.07 Absolute Lymphocytes 1.76 Absolute Monocytes 0.40 Absolute Eosinophils 0.45 Absolute Basophils 0.02 Sodium 142 Potassium 3.7 Chloride 108 H Carbon Dioxide 25.8 Anion Gap 8.2 BUN 14 Creatinine 0.7 Est GFR (CKD-EPI 2020) 102.25 Glucose 104 Calcium 8.2 L C-Reactive Protein 0.57 H Vancomycin Trough 2.3 L Preliminary micro results at discharge 01/08/24 18:15 Wound Culture - Preliminary Elbow - Left Joint Gram Positive Whitney 01/08/24 13:50 Blood Culture - Preliminary Blood NO GROWTH 24 HOURS 01/08/24 13:20 Blood Culture - Preliminary Blood NO GROWTH 24 HOURS PFSH All Active Problems (Updated 01/08/24 @ 15:17 by Adelia Gallegos) Cellulitis (Acute) Scrotal pain (Acute) Epididymal cyst (Acute) Generalized skin lesions (Acute) PAF (paroxysmal atrial fibrillation) (Acute) Lipomatosis dolorosa (Acute) Lateral epicondylitis (Acute) Insomnia (Acute) Glucose intolerance (impaired glucose tolerance) (Acute) Walker-Don syndrome (Acute) [place] lesion of lung (Acute) COPD (chronic obstructive pulmonary disease) (Chronic) Cervical spondylosis (Acute) BPH without urinary obstruction (Acute) Benign lipomatous tumor (Acute) Actinic keratosis (Acute) MALATHI (obstructive sleep apnea) (Chronic) Wearing CPAP every night Hypercholesteremia (Acute) Medical History Elevated bilirubin Pleuritic pain Right shoulder pain Exposure to asbestos Left cornea abrasion Surgical History H/O hernia repair Hx of cholecystectomy Family History Mother Hypertension Father Cancer Social History Smoking/Tobacco Use Status: Former Tobacco Use tobacco type: cigarettes Quit Date: 02/11/99 Quit status: has quit before Smoking risk assessment performed?: Yes Alcohol Intake: current Alcohol Intake frequency: a few times a week Alcohol type: beer Drug use: Rarely Substance use type: marijuana Adopted: No Household members: spouse Housing: house Number of Children: 3 number of grandchildren: 0 Communication Needs: None Education Level: college Details: BS Do you need help understanding health information?: Never current occupation: Retired Sexually active: Yes Do you think of yourself as: straight/heterosexual Current gender identity: male What is your relationship status?: How often do you talk on the phone with friends or family?: three or more times per week How often do you get together with friends or relatives?: three or more times per week How often do you attend scientologist or rastafari services?: 1-3 times per year Do you belong to any clubs or organized social groups?: no Panel score (0-1 are the most socially isolated patients): 2 What type of physical activity do you participate in: walking Duration: 45-60 minutes/day Frequency: daily Callie/Confucianist: Non uatsdin Special callie needs: No Seatbelt use: always Helmet use: Yes Helmet use: always Drive intox or ride w/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
[2024-01-10] MEDS: Ibuprofen 200 MG TAB 400 MG PO (11:51)
[2024-01-10] MEDS: metroNIDAZOLE 500 MG TAB PO (11:51)
[2024-01-10] MEDS: Cefpodoxime 200 MG TAB PO (11:51)
--- NOTE | 2024-01-10 14:34 | PDOC.CMDIS ---
Date of service: 01/10/24 Time of Service: 14:34 LACE Index Scoring Tool Questions: Length of Stay (in days): 1 Was the patient admitted via the E.D.?: Yes Comorbidities: Chronic Pulmonary Disease E.D. Visits: 1 Answers: Total Score: 7 Risk of Readmission: Low Risk Care Management Discharge Plan Reason for Hospitalization: Cellulites Discharge Plan: Discharge home via private vehicle with family. Follow up with PCP and discharge plan as discussed. No new services are ordered prior to discharge. Patient/Family Education Needs: Review discharge instructions, limitations and plan to follow up with PCP. Discuss ask me three. SDID Health Related Social Needs: No Data to Display
== END 2024-01-10 12:10 | disposition home or self-care (01) ==
LOC: ER 15:17 → MS 17:07
PROVIDERS: Nurse Practitioner Acute Care; Admitting Provider Family Medicine; Emergency Provider Nurse Practitioner Family; PCP Nurse Practitioner Family; Visit Provider Family Medicine
DX: L03.114 Cellulitis of left upper limb (principal); J44.9 Chronic obstructive pulmonary disease, unspecified; I48.0 Paroxysmal atrial fibrillation; E78.00 Pure hypercholesterolemia, unspecified; G47.33 Obstructive sleep apnea (adult) (pediatric); E88.2 Lipomatosis, not elsewhere classified; E74.39 Other disorders of intestinal carbohydrate absorption; R91.8 Other nonspecific abnormal finding of lung field; N40.0 Benign prostatic hyperplasia without lower urinary tract symptoms; M47.812 Spondylosis without myelopathy or radiculopathy, cervical region; Z79.899 Other long term (current) drug therapy
CPT/HCPCS: 00123; 36415; 80048; 85652; 87040; 87641; 96365; 96366; 96367; 96368; 96372; 96375; 99285; J1650; 73201; 80202; 85025; 86140; 87070; 87205; 94660; 99223; 99233; 99239; G0378; J0696; J1836; J1885; J3370; J3372

== ENCOUNTER 2024-01-12 13:40 | Emergency (ER) | payer BC, SELFPAY ==
[2024-01-12 13:41] VITALS: BP 168/85; PULSE 100; RESP 16; TEMP 36.6; O2SAT 98
--- NOTE | 2024-01-12 14:11 | ED.GENADUL_ITS ---
Discharge Plan Disposition Patient Disposition: Home Condition: Stable Discharge Details Clinical Impression: Pain and swelling of right wrist Primary Care Provider: Constance Bourgeois ED Provider: Ana Stevens Home Meds and New Rx's Prescriptions: Continued ibuprofen 200 mg capsule 200 mg PO Q6H PRN multivitamin Tablet 1 tab PO DAILY omega 0-roo-hwv-fish oil [Fish Oil] 60-90-500 mg capsule 1 cap PO DAILY albuterol sulfate 1.25 mg/3 mL solution for nebulization 1.25 mg inhalation QID PRN (Reason: shortness of breath or wheezing) Qty: 90 0RF albuterol sulfate 90 mcg/actuation HFA aerosol inhaler 2 puff inhalation Q6H PRN (Reason: shortness of breath or wheezing) Qty: 8.5 1RF cefpodoxime 200 mg tablet 200 mg PO BID Qty: 6 0RF Rx Instructions: must administer with a meal/food metronidazole 500 mg tablet 500 mg PO Q8H Qty: 11 0RF Bio-K plus 50 billion cell capsule,delayed release(DR/EC) 1 cap PO DAILY Qty: 5 0RF Rx Instructions: Take 3 hours before or 3 hours after antibiotics No Action prednisone 20 mg tablet 60 mg PO DAILY 5 Days Qty: 15 0RF Discharge Instructions Instructions: Swollen Joints (DC) Additional Instructions: At this time the x-rays are within normal limits. Possibilities include a phlebitis, gout, arthritis, and new or different cellulitis. Or blood clot. Please call the number for the outpatient ultrasound if you and your PCP deems of that as necessary. Please keep your appointment tomorrow as previously scheduled. Please keep taking the previously prescribed antibiotics as directed. You may use the David wrap and keep it elevated when sitting or laying down and apply ice up to 3 times daily. Follow up with primary care provider in 1-2 days. Return to ED sooner if any worsening swelling redness fever or concerns. Referrals: Constance Bourgeois THREAD INSPECTOR [Primary Care Provider] - 1 day Discharge Data Discharge Date/Time-TO BE ENTERED AT DEPARTURE: 01/12/24 15:42 HPI General Mode of arrival: ambulatory . Date/Time Provider Initiated Documentation: 01/12/24 13:50 . Limitations to Documentation: no limitations . Information obtained by: patient, RN notes reviewed and old records reviewed . HPI Narrative: 63-year-old male presents to the ER with a chief complaint of right wrist pain redness and swelling which he noticed yesterday. He was just discharged from the hospital for left antecubital cellulitis on Saturday and is taking Flagyl and cefpodoxime. He reports that he has been taking as directed. He denies any injury. He states that it is pressure. He reports that he did have some blood drawn to the dorsum of his right hand on Saturday which is just adjacent to where the pain is. He does have some increased redness and swelling. He took 200 mg ibuprofen at 1:00. He has been icing it with little to no relief. Related Data Home Medications ?Medication ?Instructions ?Recorded ?Confirmed ibuprofen 200 mg capsule 200 mg PO Q6H PRN 07/23/23 01/13/24 multivitamin 1 tab PO DAILY 07/23/23 01/13/24 albuterol sulfate 1.25 mg/3 mL 1.25 mg (3 mL) inhalation QID PRN 10/11/23 01/13/24 solution for nebulization shortness of breath or wheezing #90 mL albuterol sulfate 90 mcg/actuation 2 puff inhalation Q6H PRN 10/11/23 01/13/24 aerosol inhaler shortness of breath or wheezing #8.5 grams omega 7-pxw-rmj-fish oil 60 mg-90 1 cap PO DAILY 12/03/23 01/13/24 mg-500 mg capsule (Fish Oil) L. acidophilus,casei,rhamnosus 50 1 cap PO DAILY #5 caps 01/09/24 01/13/24 billion cell capsule,delayed release (Bio-K plus) cefpodoxime 200 mg tablet 200 mg PO BID #6 tabs 01/09/24 01/13/24 metronidazole 500 mg tablet 500 mg PO Q8H #11 tabs 01/09/24 01/13/24 prednisone 20 mg tablet 60 mg (3 x 20 mg) PO DAILY 5 days 01/13/24 #15 tabs Previous Rx's ?Medication ?Instructions ?Recorded albuterol sulfate 1.25 mg/3 mL 1.25 mg (3 mL) inhalation QID PRN 10/11/23 solution for nebulization shortness of breath or wheezing #90 mL albuterol sulfate 90 mcg/actuation 2 puff inhalation Q6H PRN 10/11/23 aerosol inhaler shortness of breath or wheezing #8.5 grams L. acidophilus,casei,rhamnosus 50 1 cap PO DAILY #5 caps 01/09/24 billion cell capsule,delayed release (Bio-K plus) cefpodoxime 200 mg tablet 200 mg PO BID #6 tabs 01/09/24 metronidazole 500 mg tablet 500 mg PO Q8H #11 tabs 01/09/24 prednisone 20 mg tablet 60 mg (3 x 20 mg) PO DAILY 5 days 01/13/24 #15 tabs Allergies Allergy/AdvReac Type Severity Reaction Status Date / Time No Known Allergies Allergy Verified 01/13/24 14:55 General Stated Complaint: Cellulitis JOAO: 3 Review of Systems Musculoskeletal Musculoskeletal: Reports as per HPI and Reports arthralgias (Right wrist) Integumentary/Breasts Skin/Breast: Reports as per HPI, Reports erythema, Reports skin pain and Reports skin swelling Exam Const General: cooperative, healthy appearing, well developed and well groomed Nutritional Appearance: average body habitus Orientation: alert, awake and oriented x3 Chest Chest: normal inspection of the chest Extrem Right upper extremity: wrist and hand Details: abnormal to inspection, tendon exam abnormal, tenderness Location: of the dorsal hand Location: proximally and of the radial aspect, warmth and swelling Hand/finger images: 2 1. Mild amount of swelling, erythema and tenderness he reports that radiates up into his right forearm Course Vital Signs Vital signs: Vital Signs Temperature 36.6 C 01/12/24 13:41 Pulse 100 H 01/12/24 13:41 Respiratory Rate 16 01/12/24 13:41 Blood Pressure 168/85 H 01/12/24 13:41 Pulse Oximetry 98 01/12/24 13:41 Temperature 36.6 C 01/12/24 13:41 Temperature Source Oral 01/12/24 13:41 Pulse 100 H 01/12/24 13:41 Respiratory Rate 16 01/12/24 13:41 Respiratory Effort Normal 01/12/24 13:47 Blood Pressure 168/85 H 01/12/24 13:41 Blood Pressure Position Sitting 01/12/24 13:41 Pulse Oximetry 98 01/12/24 13:41 Oxygen Delivery Method Room Air 01/12/24 13:41 Oxygen Flow Rate 0 01/12/24 13:41 Pain Level 9 01/12/24 13:41 Medical Decision Making X-ray of hand and wrist ordered. CBC CMP and urine drug screen ordered. Patient denies any IV drug use however with the AC puncture wound and this recurring cellulitis is suspicious. He denies any injury however will rule out underlying bony abnormality. X-ray showed no acute abnormality no gas in the soft tissues. Patient reevaluation he is stating that he does not wish to get his blood drawn at this time. He reports that he has to pick up worker his daughter around 4:00. Workup is not complete at this time. I did discuss x-ray results with him he does have a follow-up appointment with his PCP in the morning. I will order an outpatient upper extremity ultrasound to rule out blood clot versus phlebitis with him. Other differential diagnosis includes cellulitis, arthritis or gout. I did encourage him to continue taking the Flagyl and cefpodoxime as previously scheduled. Patient states that as he has been laying here his pain has gotten somewhat less. Discussed follow-up care, palpation ultrasound, strict return instructions. He verbalized understanding. This text was generated using [employer] system, please disregard any oddities of phrase or misspellings. Medical Records Medical records reviewed: Yes I reviewed the patient's medical records. Quality:SDOH Health Related Social Needs: 2 No Data to Display PFSH All Active Problems (Updated 01/13/24 @ 15:12 by Elio Smith MD) Acute pain of right wrist (Acute) Pain and swelling of right wrist (Acute) Cellulitis (Acute) Scrotal pain (Acute) Epididymal cyst (Acute) Generalized skin lesions (Acute) PAF (paroxysmal atrial fibrillation) (Acute) Lipomatosis dolorosa (Acute) Lateral epicondylitis (Acute) Insomnia (Acute) Glucose intolerance (impaired glucose tolerance) (Acute) Walker-Don syndrome (Acute) [place] lesion of lung (Acute) COPD (chronic obstructive pulmonary disease) (Chronic) Cervical spondylosis (Acute) BPH without urinary obstruction (Acute) Benign lipomatous tumor (Acute) Actinic keratosis (Acute) MALATHI (obstructive sleep apnea) (Chronic) Wearing CPAP every night Hypercholesteremia (Acute) Medical History Elevated bilirubin Pleuritic pain Right shoulder pain Exposure to asbestos Left cornea abrasion Surgical History H/O hernia repair Hx of cholecystectomy Family History Mother Hypertension Father Cancer Social History Smoking/Tobacco Use Status: Former Tobacco Use tobacco type: cigarettes Quit Date: 02/11/99 Quit status: has quit before Smoking risk assessment performed?: Yes Alcohol Intake: current Alcohol Intake frequency: a few times a week Alcohol type: beer Drug use: Rarely Substance use type: marijuana Adopted: No Household members: spouse Housing: house Number of Children: 3 number of grandchildren: 0 Communication Needs: None Education Level: college Details: BS Do you need help understanding health information?: Never current occupation: Retired Sexually active: Yes Do you think of yourself as: straight/heterosexual Current gender identity: male What is your relationship status?: How often do you talk on the phone with friends or family?: three or more times per week How often do you get together with friends or relatives?: three or more times per week How often do you attend methodist or hoahaoism services?: 1-3 times per year Do you belong to any clubs or organized social groups?: no Panel score (0-1 are the most socially isolated patients): 2 What type of physical activity do you participate in: walking Duration: 45-60 minutes/day Frequency: daily Callie/Moravian: Non confucianism Special callie needs: No Seatbelt use: always Helmet use: Yes Helmet use: always Drive 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
--- NOTE | 2024-01-12 14:33 | DI.RAD_ITS ---
Exam(s) XR HAND RT COMPLETE XR WRIST RT COMPLETE EXAM: XR HAND RT COMPLETE and XR wrist RT complete CLINICAL HISTORY: Swelling, pain. TECHNIQUE: 2D digital imaging was performed of the right wrist and hand. Six images were obtained. AP, lateral and oblique views were obtained. COMPARISON: There are no priors for comparison. FINDINGS: BONES: No acute fracture is present. No bony destructive lesion is seen. JOINTS: No dislocation present. There are mild degenerative changes seen in the hand. SOFT TISSUE: Normal. No soft tissue gas is seen. IMPRESSION: No acute abnormality. DATA REPOSITORY: RADIATION DOSE DELIVERED:
== END 2024-01-12 15:42 | disposition home or self-care (01) ==
PROVIDERS: Emergency Provider Registered Nurse Emergency; PCP Nurse Practitioner Family
DX: M25.531 Pain in right wrist (principal); L53.9 Erythematous condition, unspecified; I48.91 Unspecified atrial fibrillation; J44.9 Chronic obstructive pulmonary disease, unspecified; Z87.891 Personal history of nicotine dependence
CPT/HCPCS: 80053; 99284; 73110; 73130; 85025

== ENCOUNTER 2024-01-13 14:50 | Emergency (ER) | payer BC, SELFPAY ==
[2024-01-13 14:52] VITALS: BP 147/86; PULSE 74; RESP 14; TEMP 36.8; O2SAT 98
--- NOTE | 2024-01-13 15:08 | ED.GENADUL_ITS ---
Discharge Plan Disposition Patient Disposition: Home Condition: Stable Discharge Details Clinical Impression: Acute pain of right wrist Primary Care Provider: Constance Bourgeois ED Provider: Elio Smith Home Meds and New Rx's Prescriptions: New prednisone 20 mg tablet 60 mg PO DAILY 5 Days Qty: 15 0RF Continued ibuprofen 200 mg capsule 200 mg PO Q6H PRN multivitamin Tablet 1 tab PO DAILY omega 8-cve-nrj-fish oil [Fish Oil] 60-90-500 mg capsule 1 cap PO DAILY albuterol sulfate 1.25 mg/3 mL solution for nebulization 1.25 mg inhalation QID PRN (Reason: shortness of breath or wheezing) Qty: 90 0RF albuterol sulfate 90 mcg/actuation HFA aerosol inhaler 2 puff inhalation Q6H PRN (Reason: shortness of breath or wheezing) Qty: 8.5 1RF cefpodoxime 200 mg tablet 200 mg PO BID Qty: 6 0RF Rx Instructions: must administer with a meal/food metronidazole 500 mg tablet 500 mg PO Q8H Qty: 11 0RF Bio-K plus 50 billion cell capsule,delayed release(DR/EC) 1 cap PO DAILY Qty: 5 0RF Rx Instructions: Take 3 hours before or 3 hours after antibiotics Discharge Instructions Additional Instructions: Your ultrasound did not show any concerning findings at this time Take the prednisone as prescribed. Follow-up with your primary care provider especially if you are improving within a week If you feel more ill, have high fevers or severe worsening pain return to the emergency department for reevaluation HPI General Mode of arrival: ambulatory . Date/Time Provider Initiated Documentation: 01/13/24 14:50 . Limitations to Documentation: no limitations . Information obtained by: patient . History of Present Illness 63 year old M presents to the emergency department with the chief complaint of right wrist redness/pain, u/s results, described as moderate, Quality is described as aching, Patient started experiencing this day(s) (3) and it has been constant. Rest improves symptom(s), Movement worsens symptoms . Patient notes no other symptoms.. Related Data Home Medications ?Medication ?Instructions ?Recorded ?Confirmed ibuprofen 200 mg capsule 200 mg PO Q6H PRN 07/23/23 01/13/24 multivitamin 1 tab PO DAILY 07/23/23 01/13/24 albuterol sulfate 1.25 mg/3 mL 1.25 mg (3 mL) inhalation QID PRN 10/11/23 01/13/24 solution for nebulization shortness of breath or wheezing #90 mL albuterol sulfate 90 mcg/actuation 2 puff inhalation Q6H PRN 10/11/23 01/13/24 aerosol inhaler shortness of breath or wheezing #8.5 grams omega 3-erk-jvh-fish oil 60 mg-90 1 cap PO DAILY 12/03/23 01/13/24 mg-500 mg capsule (Fish Oil) L. acidophilus,casei,rhamnosus 50 1 cap PO DAILY #5 caps 01/09/24 01/13/24 billion cell capsule,delayed release (Bio-K plus) cefpodoxime 200 mg tablet 200 mg PO BID #6 tabs 01/09/24 01/13/24 metronidazole 500 mg tablet 500 mg PO Q8H #11 tabs 01/09/24 01/13/24 prednisone 20 mg tablet 60 mg (3 x 20 mg) PO DAILY 5 days 01/13/24 #15 tabs Previous Rx's ?Medication ?Instructions ?Recorded albuterol sulfate 1.25 mg/3 mL 1.25 mg (3 mL) inhalation QID PRN 10/11/23 solution for nebulization shortness of breath or wheezing #90 mL albuterol sulfate 90 mcg/actuation 2 puff inhalation Q6H PRN 10/11/23 aerosol inhaler shortness of breath or wheezing #8.5 grams L. acidophilus,casei,rhamnosus 50 1 cap PO DAILY #5 caps 01/09/24 billion cell capsule,delayed release (Bio-K plus) cefpodoxime 200 mg tablet 200 mg PO BID #6 tabs 01/09/24 metronidazole 500 mg tablet 500 mg PO Q8H #11 tabs 01/09/24 prednisone 20 mg tablet 60 mg (3 x 20 mg) PO DAILY 5 days 01/13/24 #15 tabs Allergies Allergy/AdvReac Type Severity Reaction Status Date / Time No Known Allergies Allergy Verified 01/13/24 14:55 General Stated Complaint: Recheck JOAO: 4 Review of Systems All systems reviewed & are unremarkable except as noted in HPI and below Constitutional Constitutional: Denies chills, Denies fever(s) and Denies weakness Cardiovascular Cardiovascular: Denies chest pain and Denies dyspnea Respiratory Respiratory: Denies cough and Denies dyspnea Gastrointestinal Gastrointestinal: Denies abdominal pain, Denies nausea and Denies vomiting Musculoskeletal Musculoskeletal: Reports arthralgias and Denies numbness Neurologic Neurologic: Denies numbness and Denies weakness Endocrine Endocrine: Denies heat intolerance Exam Const General: no acute distress Orientation: alert [facility] Head: normal to inspection Ears: external ears normal General nose exam: external nose normal Mouth: moist mucous membranes Eyes General: appearance normal, both eyes and all related structures Neck Neck: normal visual inspection Resp Effort & Inspection: normal respiratory effort and able to speak in complete sentences Cardio Rate: regular rate Skin General skin exam: erythema Neuro General: patient alert and patient oriented x3 Extrem General: normal to inspection, full ROM and capillary refill normal Psych Mental Status: mental status grossly normal Course Vital Signs Vital signs: Vital Signs Temperature 36.8 C 01/13/24 14:52 Pulse 74 01/13/24 14:52 Respiratory Rate 14 01/13/24 14:52 Blood Pressure 147/86 H 01/13/24 14:52 Pulse Oximetry 98 01/13/24 14:52 Temperature 36.8 C 01/13/24 14:52 Temperature Source Oral 01/13/24 14:52 Pulse 74 01/13/24 14:52 Respiratory Rate 14 01/13/24 14:52 Respiratory Effort Normal, Non-Labored 01/13/24 14:56 Blood Pressure 147/86 H 01/13/24 14:52 Blood Pressure Position Sitting 01/13/24 14:52 Pulse Oximetry 98 01/13/24 14:52 Oxygen Delivery Method Room Air 01/13/24 14:52 Oxygen Flow Rate 0 01/13/24 14:52 Pain Level 4 01/13/24 14:52 Medical Decision Making 63-year-old male with a history of paroxysmal A-fib, COPD, who comes in after an ultrasound of his right upper extremity to evaluate for DVT. He was admitted to the hospital last week for a left arm cellulitis that is improving on oral antibiotics. Several days ago he started having some right wrist discomfort and swelling and redness, was evaluated in the ER had x-rays that were unremarkable, and had an ultrasound today showing no evidence of DVT. He says his versus improving. He has full range of motion of it. He does have some very mild erythema on the posterior portion of the wrist and hand, he did state he had labs drawn there while he was hospitalized. He has no swelling of the wrist, full range of motion of the wrist and hand. Intact sensation and pulses. The rash is not warm. I doubt infectious etiology, he has no swelling of the wrist and full range of motion so doubt septic joint. I suspect he could have arth ritis versus possible gout, will trial short course of prednisone and he will follow-up with his PCP, return precautions given Differential Diagnosis Differential Diagnosis: Arthritis, phlebitis Quality:SDOH Health Related Social Needs: No Data to Display PFSH All Active Problems (Updated 01/13/24 @ 15:12 by Elio Smith MD) Acute pain of right wrist (Acute) Pain and swelling of right wrist (Acute) Cellulitis (Acute) Scrotal pain (Acute) Epididymal cyst (Acute) Generalized skin lesions (Acute) PAF (paroxysmal atrial fibrillation) (Acute) Lipomatosis dolorosa (Acute) Lateral epicondylitis (Acute) Insomnia (Acute) Glucose intolerance (impaired glucose tolerance) (Acute) Walker-Don syndrome (Acute) [place] lesion of lung (Acute) COPD (chronic obstructive pulmonary disease) (Chronic) Cervical spondylosis (Acute) BPH without urinary obstruction (Acute) Benign lipomatous tumor (Acute) Actinic keratosis (Acute) MALATHI (obstructive sleep apnea) (Chronic) Wearing CPAP every night Hypercholesteremia (Acute) Medical History Elevated bilirubin Pleuritic pain Right shoulder pain Exposure to asbestos Left cornea abrasion Surgical History H/O hernia repair Hx of cholecystectomy Family History Mother Hypertension Father Cancer Social History Smoking/Tobacco Use Status: Former Tobacco Use tobacco type: cigarettes Quit Date: 02/11/99 Quit status: has quit before Smoking risk assessment performed?: Yes Alcohol Intake: current Alcohol Intake frequency: a few times a week Alcohol type: beer Drug use: Rarely Substance use type: marijuana Adopted: No Household members: spouse Housing: house Number of Children: 3 number of grandchildren: 0 Communication Needs: None Education Level: college Details: BS Do you need help understanding health information?: Never current occupation: Retired Sexually active: Yes Do you think of yourself as: straight/heterosexual Current gender identity: male What is your relationship status?: How often do you talk on the phone with friends or family?: three or more times per week How often do you get together with friends or relatives?: three or more times per week How often do you attend nondenominational or jainism services?: 1-3 times per year Do you belong to any clubs or organized social groups?: no Panel score (0-1 are the most socially isolated patients): 2 What type of physical activity do you participate in: walking Duration: 45-60 minutes/day Frequency: daily Callie/Catholic: Non zoroastrianism Special callie needs: No Seatbelt use: always Helmet use: Yes Helmet use: always Drive intox or ride w/intox 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
[2024-01-13 15:16] VITALS: BP 147/86; PULSE 74; RESP 14; TEMP 36.8; O2SAT 98
== END 2024-01-13 15:17 | disposition home or self-care (01) ==
PROVIDERS: Emergency Provider Emergency Medicine; PCP Nurse Practitioner Family
DX: M25.531 Pain in right wrist (principal); I10 Essential (primary) hypertension; Z87.891 Personal history of nicotine dependence
CPT/HCPCS: 99283

== ENCOUNTER 2024-07-07 01:45 | Outpatient (CLI) | payer BC, SELFPAY ==
--- NOTE | 2024-07-07 06:45 | DI.CT_ITS ---
Exam(s) CT ABDOMEN PELVIS W EXAM: CT ABDOMEN PELVIS W CLINICAL HISTORY: ? incisional hernia in RLQ,ABD PAIN INCREASED WITH POSITION CHANGE,R10.9. TECHNIQUE: Imaging Protocol: Axial computed tomography images with coronal and sagittal reformatted images were created and reviewed CONTRAST MATERIAL: Intravenous: Omnipaque 350 Contrast volume:100 ml Oral: yes COMPARISON: US US HERNIA from 05/21/2024 FINDINGS: ABDOMEN and PELVIS: Lung Bases: No acute findings. Liver: Normal density. No suspicious mass. Gallbladder and biliary tract: Cholecystectomy. No biliary dilation. Pancreas: Normal density. No abnormal calcifications or inflammatory process. No evidence of mass. Spleen: Normal. Kidneys: Normal size, contour and axis. No radiodense stones. No obstructive uropathy. No suspicious masses seen. Adrenal glands: No masses seen. Vasculature: Abdominal aorta non-dilated. Soft tissues: There is no evidence of a right lower quadrant incisional hernia. There is a small thais unt of fat in the inguinal canals. Bladder: No gross wall thickening. No calculi.No focal mass. Bowel: No obstruction. No bowel wall thickening. Appendix normal. Diverticulosis. Normal quantity of stool. Peritoneal cavity: No ascites. No focal collection. No mesenteric inflammatory response. No free air . Bones: Unremarkable for age. Reproductive organs: The prostate is enlarged, impressing on the base of the bladder.. Lymph nodes: No pathologically enlarged lymph nodes. IMPRESSION:: No acute abnormality in the abdomen or pelvis. No evidence of right lower quadrant incisional hernia. RADIATION DOSE DELIVERED: Total DLP DATA REPOSITORY: All CT scans at this facility are submitted to the National Radiology Data Registry (NRDR) Dose Index Registry (DIR) with the [employer] (ACR). RADIATION OPTIMIZATION: All CT scans at this facility use at least one of these dose optimization te chniques: automated exposure control; mA and/or kV adjustment per patient size (includes targeted exa ms where dose is matched to clinical indication); or iterative reconstruction.
[2024-07-07] MEDS: Barium Sulfate 2% W/V-Berry Smoothie 450 ML BTL PO (08:55)
[2024-07-07] MEDS: Barium Sulfate 2% W/V-Creamy Vanilla Smoothie 450 ML BTL PO (08:56)
[2024-07-07 09:35] LABS: CREATININE 0.9 mg/dL (0.70-1.30); Estimated GFR 94.78 (mL/min/1.73m2)
== END 2024-07-07 02:05 ==
LOC: DI 01:45
PROVIDERS: PCP Nurse Practitioner Family; Visit Provider Student in an Organized Health Care Education/Training Program
DX: R10.9 Unspecified abdominal pain (principal)
CPT/HCPCS: 74177; 82565

== ENCOUNTER 2024-07-13 08:20 | Day surgery (SDC) | payer BC, SELFPAY ==
[2024-07-13 08:45] VITALS: BP 153/92; PULSE 74; RESP 18; TEMP 36.5; O2SAT 96
[2024-07-13] MEDS: Lactated Ringers 1,000 ML 80 ML IV (09:00)
--- NOTE | 2024-07-13 10:17 | ANES.PREOP_ITS ---
General Info Date of Service Date Performed: 07/13/24 Height: 6 ft 2 in Weight: 96.1 kg Body Mass Index (BMI): 27.1 Surgical Procedure: Operation Date: 07/13/24 10:05 Proposed Procedure Side Surgeon p Colonoscopy Jimenez Daily MD Actual Procedure Side Surgeon p Colonoscopy Not Applicable Jimenez Daily MD Meds Allergies and Home Medications Allergies Allergy/AdvReac Type Severity Reaction Status Date / Time No Known Allergies Allergy Verified 07/13/24 08:51 Home Medication ?Medication ?Instructions ?Recorded ibuprofen 200 mg capsule 200 mg PO Q6H PRN 07/23/23 multivitamin 1 tab PO DAILY 07/23/23 albuterol sulfate 1.25 mg/3 mL 1.25 mg (3 mL) inhalation QID PRN 10/11/23 solution for nebulization shortness of breath or wheezing #90 mL omega 2-jbh-srp-fish oil 60 mg-90 1 cap PO DAILY 12/03/23 mg-500 mg capsule (Fish Oil) L. acidophilus,casei,rhamnosus 50 1 cap PO DAILY #5 caps 01/09/24 billion cell capsule,delayed release (Bio-K plus) albuterol sulfate 90 mcg/actuation 2 puff inhalation Q6H PRN 05/18/24 aerosol inhaler shortness of breath or wheezing #8.5 grams cetirizine 10 mg capsule (Zyrtec) 10 mg PO DAILY PRN 06/30/24 Current Visit Medications: Current Medications Generic Name Dose Route Start Last Admin Trade Name Freq PRN Reason Stop Dose Admin Ringer's Solution 1,000 mls @ 80 mls/hr 07/13/24 06:00 07/13/24 09:00 IV 07/13/24 23:59 80 mls/hr INFUSION RADHA Administration IV Miscellaneous Supplies 1 each 07/13/24 06:00 Iv Access IV 07/13/24 23:59 DIRECTED RADHA Sodium Chloride 0 ml 07/13/24 06:00 Normal Saline Flush 10 Ml Syr IV 07/13/24 23:59 PRN PRN Sodium Chloride 0 ml 07/13/24 06:00 Normal Saline 10 Ml Vial IJ 07/13/24 23:59 DIRECTED PRN Sterile Water 0 ml 07/13/24 06:00 Water,Injection,Sterile 10 Ml Vial IJ 07/13/24 23:59 DIRECTED PRN PFSH Active Problems Active Problems: Problem Status Onset Code Abdominal pain increased with position change Acute R10.9 Cellulitis Acute L03.90 Scrotal pain Acute N50.82 Epididymal cyst Acute N50.3 Generalized skin lesions Acute L98.9 PAF (paroxysmal atrial fibrillation) Acute 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 Lateral epicondylitis Acute M77.10 Insomnia Acute G47.00 Glucose intolerance (impaired glucose tolerance) Acute 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 [place] lesion of lung Acute R91.1 COPD (chronic obstructive pulmonary disease) Chronic J44.9 Cervical spondylosis Acute M47.812 BPH without urinary obstruction Acute N40.0 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 Actinic keratosis Acute L57.0 MALATHI (obstructive sleep apnea) Chronic G47.33 Hypercholesteremia Acute E78.00 Medical History Medical History Elevated bilirubin Pleuritic pain Right shoulder pain Exposure to asbestos Left cornea abrasion Surgical History Surgical History H/O hernia repair Hx of cholecystectomy Tobacco Smoking/Tobacco Use Status: Former Tobacco Use Passive smoking exposure: Yes Alcohol Alcohol Intake: current Alcohol intake frequency: a few times a week Alcohol type: beer Substance Use Substance use: Rarely Substance use type: marijuana Details: Denies use the last 24 hours Vital Signs and Lab Results Vital Signs Most Recent Vital Signs in EMR: Most Recent Vital Signs Temp Pulse Resp BP Pulse Ox 36.5 C 74 18 153/92 H 96 07/13/24 08:45 07/13/24 08:45 07/13/24 08:45 07/13/24 08:45 07/13/24 08:45 Lab Results Blood Type / Crossmatch: No Data to Display Complete Blood Count: No Data to Display Complete Metabolic Panel: Creatinine 0.9 mg/dL (0.70-1.30) 07/07/24 09:20 Est GFR (CKD-EPI 2020) 94.78 (mL/min/1.73m2) 07/07/24 09:20 Liver Function Panel: No Data to Display Coagulation Panel: No Data to Display Cardiac Panel: No Data to Display Arterial Blood Gas: No Data to Display Venous Blood Gas: No Data to Display Pancreas Panel: No Data to Display Thyroid Panel: No Data to Display Infectious Disease: No Data to Display Blood Cultures: No Data to Display Toxicology Panel: No Data to Display Anesthesia Assessment and Plan Anesthesia History Personal History: No History of Anesthesia Complications Family History: No Family History of Anesthesia Complications Exercise Tolerance Exercise Tolerance: Metabolic Equivalents>4 Pertinent Negatives Pertinent Negatives: No Symptoms of GERD Cardiac & Pulmonary Exam Cardiac Exam: Normal S1/S2 Heart Sounds Pulmonary Exam: Clear Bilateral Breath Sounds Implantable Cardiac Device Does patient have a Pacemaker or an ICD?: No Airway Exam Known Difficult Airway: No Mallampati Class: 2 Mouth Opening: Normal (> 3cm) Thyromental Distance: Greater than 3 cm Neck Range of Motion: Full ROM Neck Circumference: Normal Teeth Condition: Normal Dentition ASA Classification ASA Score: ASA 2 Emergency Case?: No NPO Status NPO Status: NPO Clears >2 hours, Solids >8 hours Anesthesia Plan Resuscitation Status: Full Code Anesthesia Technique: General Anesthesia Airway Planned: Natural Airway Monitors Used: Standard Monitors
[2024-07-13 10:18] VITALS: BMI 27.1
--- NOTE | 2024-07-13 10:27 | W.COLOREPORT ---
Date of service: 07/13/24 Time of Service: 10:27 Colonoscopy Report Procedure Description: PROCEDURES PERFORMED: 1. Colonoscopy PREOPERATIVE DIAGNOSIS: Surveillance colonoscopy POSTOPERATIVE DIAGNOSIS: Mild diverticulosis, grade 1 internal hemorrhoids SURGEON: Jeremiah Daily MD INDICATION FOR PROCEDURE: the patient is a 63-year-old man with no significant family history of colon cancer, no personal history of significance and no bowel habit issues. Due for surveillance colonoscopy. FINDINGS: Normal terminal ileum. A few scattered diverticuli are present in the left colon. No inflammation or stricture anywhere. There were no polyps found. Grade 1 internal hemorrhoids are present. SURVEILLANCE interval/FOLLOW-UP: 10 years SPECIMENS: None EBL: Minimal COMPLICATIONS: None QUALITY of prep: Excellent Procedure in detail: The patient gave written consent and was in agreement with the indications, the potential risks as well as the benefits of the procedure. They were taken to the endoscopy suite and laid in the left lateral decubitus position. A timeout was performed and anesthesia was administered which was tolerated well. I started the procedure. Digital rectal and visual examination was performed and grossly within normal limits. A well-lubricated flexible colonoscope was then introduced and passed without any notable difficulty all the way to the cecum identified by the ileocecal valve and the appendiceal orifice. The terminal ileum was intubated and looked normal. The scope was then slowly withdrawn with the above-noted findings. The patient tolerated the procedure well and was taken to the PACU in hemodynamically stable condition.
--- NOTE | 2024-07-13 10:27 | W.PM.DSUDISC ---
Date of service: 07/13/24 Discharge Plan Disposition Patient Disposition: Home Condition: Good Discharge Details Attending Provider: Jimenez Daily Primary Care Provider: Constance Bourgeois Home Meds and New Rx's Prescriptions: No Action ibuprofen 200 mg capsule 200 mg PO Q6H PRN multivitamin Tablet 1 tab PO DAILY albuterol sulfate 90 mcg/actuation HFA aerosol inhaler 2 puff inhalation Q6H PRN (Reason: shortness of breath or wheezing) Qty: 8.5 1RF Zyrtec 10 mg capsule 10 mg PO DAILY PRN omega 1-xzd-bbi-fish oil [Fish Oil] 60-90-500 mg capsule 1 cap PO DAILY albuterol sulfate 1.25 mg/3 mL solution for nebulization 1.25 mg inhalation QID PRN (Reason: shortness of breath or wheezing) Qty: 90 0RF Bio-K plus 50 billion cell capsule,delayed release(DR/EC) 1 cap PO DAILY Qty: 5 0RF Rx Instructions: Take 3 hours before or 3 hours after antibiotics Discharge Instructions Additional Instructions: FINDINGS: No polyps and certainly no cancer anywhere. No inflammation. Basically, nothing in your colon is contributing to the discomfort you feel. Some diverticulosis was encountered which is extremely common, benign and nothing needs to be done about it. Repeat another colonoscopy in 10 years. Outside of this, as we discussed, I think it is worth removing the lipoma on your back with some degree of optimism that this may relieve your symptoms. Call the surgery office to schedule. Activity:: Activity as Tolerated Diet:: As Tolerated Discharge Orders Discharge Orders: Discharge Order (Routine); Ordered 07/13/24 Ordered By: Jimenez Daily
[2024-07-13 11:09] VITALS: BP 138/75; PULSE 72; RESP 18; TEMP 36.3; O2SAT 97
--- NOTE | 2024-07-13 11:11 | W.ANESPOSTOP ---
Postoperative Evaluation Date, Time and Location Date Performed: 07/13/24 Time Performed: 11:11 Patient Location: Day Surgery Unit Vital Signs Most Recent Imported Vital Signs: Most Recent Vital Signs Temp Pulse Resp BP Pulse Ox 36.3 C L 72 18 138/75 97 07/13/24 11:09 07/13/24 11:09 07/13/24 11:09 07/13/24 11:09 07/13/24 11:09 Pain Score Most Recent Pain Score: Most Recent Pain Score Pain Level 0 07/13/24 11:09 Assessment Mental Status: Awake (Alert & Oriented to Patient Baseline) Airway and Respiratory Function: Patent airway with normal (patient baseline) respiratory exam Cardiovascular Function: Hemodynamically Stable Hydration Status: Adequately Hydrated Nausea & Vomiting: No Nausea or Vomiting Pain: Pt. Denies Any Pain Peripheral Nerve Block: Patient did not receive a nerve block
[2024-07-13 11:33] VITALS: BP 123/66; PULSE 56; RESP 16; TEMP 36.3; O2SAT 98
== END 2024-07-13 11:59 | disposition home or self-care (01) ==
PROVIDERS: PCP Nurse Practitioner Family; Visit Provider Student in an Organized Health Care Education/Training Program
PROC: 0DJD8ZZ Inspection of Lower Intestinal Tract, Via Natural or Artificial Opening Endoscopic (ICD-10-PCS; CPT 45378; principal; 2024-07-13 10:00)
DX: Z12.11 Encounter for screening for malignant neoplasm of colon (principal); R10.31 Right lower quadrant pain; K57.30 Diverticulosis of large intestine without perforation or abscess without bleeding; K64.0 First degree hemorrhoids
CPT/HCPCS: 45378; J2003; J2704

== ENCOUNTER 2024-08-12 02:50 | Outpatient (CLI) | payer BC, SELFPAY ==
--- NOTE | 2024-08-12 07:00 | DI.MRI_ITS ---
Exam(s) MR UPPER JOINT RT WO EXAM: MR UPPER JOINT RT WO CLINICAL HISTORY: injury to rt shoulder 07/26/24,rt shoulder pain, m25.511. TECHNIQUE: Multiplanar multisequence MRI was performed. COMPARISON: None. FINDINGS: BONES: There is no fracture or contusion pattern. Degenerative cysts in the inferior glenoid. JOINTS:The acromioclavicular joint shows inferior spurring and a small amount of fluid. This appears to impinge on the distal supraspinatus muscle tendon junction. The glenohumeral joint is normal. TENDONS: Supraspinatus: Full-thickness tear of the supraspinatus tendon with some retraction of the fibers, approximately 1.7 cm. Infraspinatus: Unremarkable. Subscapularis: Unremarkable. Teres Minor: Unremarkable. Biceps and Coxsackie: Unremarkable. MUSCLES: Unremarkable. GLENOID LABRUM: Degenerative changes. SOFT TISSUES: Unremarkable. BURSAE: Subacromial and subdeltoid bursae shows a small amount of fluid.. IMPRESSION: Full-thickness tear of the supraspinatus tendon with retraction. DATA REPOSITORY:
== END 2024-08-12 03:10 ==
LOC: DI 02:51
PROVIDERS: PCP Nurse Practitioner Family; Visit Provider Nurse Practitioner Family
DX: M75.121 Complete rotator cuff tear or rupture of right shoulder, not specified as traumatic (principal)
CPT/HCPCS: 73221

== ENCOUNTER 2024-08-17 11:43 | Day surgery (SDC) | payer BC, SELFPAY | END 2024-08-17 11:44 | disposition home or self-care (01) | LOC: SUR 10-07 11:44 | PROVIDERS: PCP Nurse Practitioner Family; Visit Provider Student in an Organized Health Care Education/Training Program | DX: Z53.29 Procedure and treatment not carried out because of patient's decision for other reasons (principal) ==

== ENCOUNTER 2024-08-25 14:57 | Outpatient (CLI) | payer BC, SELFPAY ==
--- NOTE | 2024-08-25 13:15 | DI.RAD_ITS ---
Exam(s) XR SHOULDER RT COMPLETE 2+V EXAM: XR SHOULDER RT COMPLETE 2+V CLINICAL HISTORY: evaluate shoulder pain. TECHNIQUE: 2D digital imaging was performed. COMPARISON: No exams were available for comparison FINDINGS: 3 views No evidence of acute fracture. On the axial images small calcification anteriorly. May indicate calcific tendinitis. There are mild degenerative changes in the glenohumeral joint. There is no joint space narrowing but there is small osteophytes on the inferior articular surfaces of the humeral head and osseous glenoid. There are no obvious degenerative subarticular cysts. Minimal degenerative changes in the AC joint. Coracoid process is unremarkable. IMPRESSION: Possible subtle rotator cuff calcified tendinitis. Mild degenerative changes in the glenohumeral joint. DATA REPOSITORY: RADIATION DOSE DELIVERED:
== END 2024-08-25 14:58 | disposition home or self-care (01) ==
LOC: DIORS 14:57
PROVIDERS: PCP Nurse Practitioner Family; Visit Provider Student in an Organized Health Care Education/Training Program
DX: M25.511 Pain in right shoulder (principal); M19.011 Primary osteoarthritis, right shoulder
CPT/HCPCS: 73030

== ENCOUNTER 2024-09-10 02:47 | Outpatient (CLI) | payer BC, SELFPAY ==
[2024-09-10 10:07] LABS: ALT 24 U/L (16-63); AST 14 U/L (15-37); Albumin 3.7 g/dL (3.4-5.0); Alkaline Phosphatase 60 U/L (46-116); Anion Gap 6.3 mmol/L (3-11); BUN 13 mg/dL (7-18); Bilirubin, Total 1.4 mg/dL (0.2-1.0); CO2 29.7 mmol/L (21.0-32.0); Calcium 8.9 mg/dL (8.5-10.1); Calculated LDL 121 mg/dL (<100); Chloride 104 mmol/L (98-107); Cholesterol 206 mg/dL (<200); Estimated GFR 97.61 (mL/min/1.73m2); Glucose 101 mg/dL (74-106); HDL Cholesterol 62 mg/dL (>or=40); Potassium 4.4 mmol/L (3.5-5.1); Sodium 140 mmol/L (136-145); Total Protein 6.7 g/dL (6.4-8.2); Triglyceride 115 mg/dL (<150)
[2024-09-10 17:59] LABS: PSA, Screening 3.6 ng/mL (<=4.5)
== END 2024-09-10 02:48 | disposition home or self-care (01) ==
LOC: LBO 02:47
PROVIDERS: PCP Nurse Practitioner Family; Visit Provider Nurse Practitioner Family
DX: Z12.5 Encounter for screening for malignant neoplasm of prostate (principal); Z00.00 Encounter for general adult medical examination without abnormal findings; I48.0 Paroxysmal atrial fibrillation; E78.00 Pure hypercholesterolemia, unspecified; J44.9 Chronic obstructive pulmonary disease, unspecified; G47.33 Obstructive sleep apnea (adult) (pediatric); N40.0 Benign prostatic hyperplasia without lower urinary tract symptoms
CPT/HCPCS: 36415; 80053; 80061; 84153

== ENCOUNTER 2024-09-18 06:10 | Day surgery (SDC) | payer BC, SELFPAY ==
[2024-09-18] VITALS (45 sets, daily range): BP systolic 101–161; BP diastolic 48–92; PULSE 54–78; RESP 11–31; TEMP 36–36.8; O2SAT 92–100; BMI 27.2
[2024-09-18] MEDS: Lactated Ringers 1,000 ML 30 ML IV (06:55)
--- NOTE | 2024-09-18 07:05 | ANES.PREOP_ITS ---
General Info Date of Service Date Performed: 09/18/24 Height: 6 ft 2 in Weight: 96.3 kg Body Mass Index (BMI): 27.2 Surgical Procedure: Operation Date: 09/18/24 07:40 Proposed Procedure Side Surgeon p Shoulder Rotator Cuff Arthroscopic w/Extensive Debridement, Biceps Tenodesis, Subacromial Decompression Right Derik Prieto MD Meds Allergies and Home Medications Allergies Allergy/AdvReac Type Severity Reaction Status Date / Time No Known Allergies Allergy Verified 09/18/24 06:19 Home Medication ?Medication ?Instructions ?Recorded ibuprofen 200 mg capsule 200 mg PO Q6H PRN 07/23/23 multivitamin 1 tab PO DAILY 07/23/23 albuterol sulfate 1.25 mg/3 mL 1.25 mg (3 mL) inhalati on QID PRN 10/11/23 solution for nebulization shortness of breath or wheez ing #90 mL omega 5-wzh-bsm-fish oil 60 mg-90 1 cap PO DAILY 12/02 mg-500 mg capsule (Fish Oil) L. acidophilus,casei,rhamnosus 50 1 cap PO DAILY #5 ca ps 01/09/24 billion cell capsule,delayed release (Bio-K plus) albuterol sulfate 90 mcg/actuation 2 puff inhalation Q 6H PRN 05/18/24 aerosol inhaler shortness of breath or wheez ing #8.5 grams cetirizine 10 mg capsule (Zyrtec) 10 mg PO DAILY PRN 0 06/30/24 tramadol 50 mg tablet 50 mg PO Q6H PRN pain #30 ta bs 08/31/24 Current Visit Medications: Current Medications Generic Name Dose Route Start Last Admin Trade Name Freq PRN Reason Stop Dose Admin Ringer's Solution 1,000 mls @ 30 mls/hr 09/18/24 06:00 09/18/24 06:55 IV 09/18/24 23:59 30 mls/hr INFUSION RADHA Administration Cefazolin Sodium 3,000 mg/ 100 mls @ 200 mls/hr 09/18/24 06:00 Sodium Chloride IV 09/18/24 23:59 PREOP RADHA Tranexamic Acid/Sodium Chloride 1,000 mg in 100 mls @ 600 mls/hr 09/18/24 06:00 IVPB 09/18/24 23:59 PREOP RADHA IV Miscellaneous Supplies 1 each 09/18/24 06:00 Iv Access IV 09/18/24 23:59 DIRECTED RADHA Sodium Chloride 0 ml 09/18/24 06:00 Normal Saline Flush 10 Ml Syr IV 09/18/24 23:59 PRN PRN Sodium Chloride 0 ml 09/18/24 06:00 Normal Saline 10 Ml Vial IJ 09/18/24 23:59 DIRECTED PRN Sterile Water 0 ml 09/18/24 06:00 Water,Injection,Sterile 10 Ml Vial IJ 09/18/24 23:59 DIRECTED PRN PFSH Active Problems Active Problems: Problem Status Onset Code Tendonitis of long head of biceps brachii of right shoulder Acute M75.21 Right rotator cuff tear Acute M75.101 Abdominal pain increased with position change Acute R10.9 Cellulitis Acute L03.90 Scrotal pain Acute N50.82 Epididymal cyst Acute N50.3 Generalized skin lesions Acute L98.9 PAF (paroxysmal atrial fibrillation) Acute 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 Lateral epicondylitis Acute M77.10 Insomnia Acute G47.00 Glucose intolerance (impaired glucose tolerance) Acute 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 [place] lesion of lung Acute R91.1 COPD (chronic obstructive pulmonary disease) Chronic J44.9 Cervical spondylosis Acute M47.812 BPH without urinary obstruction Acute N40.0 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 Actinic keratosis Acute L57.0 MALATHI (obstructive sleep apnea) Chronic G47.33 Hypercholesteremia Acute E78.00 Medical History Medical History Elevated bilirubin Pleuritic pain Right shoulder pain Exposure to asbestos Left cornea abrasion Surgical History Surgical History (Updated 09/18/24 @ 06:33 by Anna Russell) H/O knee surgery History of colonoscopy (~07/2024) H/O hernia repair Hx of cholecystectomy Tobacco Smoking/Tobacco Use Status: Former Tobacco Use Passive smoking exposure: Yes Alcohol Alcohol Intake: current Alcohol intake frequency: a few times a week Alcohol type: beer Substance Use Substance use: Rarely Substance use type: marijuana Details: alcohol: t-1, one beer. Marijuana: 1 week, couple puffs Vital Signs and Lab Results Vital Signs Most Recent Vital Signs in EMR: Most Recent Vital Signs Temp Pulse Resp BP Pulse Ox 36.5 C 74 18 155/90 H 100 09/18/24 06:29 09/18/24 06:29 09/18/24 06:29 09/18/24 06:29 09/18/24 06:29 Lab Results Complete Metabolic Panel: Sodium, (136-145) 140 mmol/L 09/10/24, 09:21 Potassium, (3.5-5.1) 4.4 mmol/L 09/10/24, 09:21 Chloride, (98-107) 104 mmol/L 09/10/24, 09:21 Carbon Dioxide, (21.0-32.0) 29.7 mmol/L 09/10/24, 09 :21 BUN, (7-18) 13 mg/dL 09/10/24, 09:21 Creatinine, (0.70-1.30) 0.8 mg/dL 09/10/24, 09:21 Est GFR (CKD-EPI 2020), (mL/min/1.73m2) 97.61 09/10/24, 09:21 Calcium, (8.5-10.1) 8.9 mg/dL 09/10/24, 09:21 Albumin, (3.4-5.0) 3.7 g/dL 09/10/24, 09:21 Glucose, (74-106) 101 mg/dL 09/10/24, 09:21 Liver Function Panel: ALT, (16-63) 24 U/L 09/10/24, 09:21 AST, (15-37) 14 U/L L 09/10/24, 09:21 Imaging and Studies Imaging and Studies Study information below may be from another EMR and interpreted by another provider. Please see original notes in EMR for more complete details. Stress Test Summary: august 2023 Stress ECG Conclusion 1. Resting electrocardiogram was normal 2. Patient exercised on the Adam protocol and completed workload of 11.24 METS 3. Normal heart rate and blood pressure response to exercise. The patient achieved 87% of predicted heart rate for age 4. There was no electrocardiographic evidence of myocardial ischemia 5. There were no significant dysrhythmias Gary Treadmill Score is 9.5 which is Low risk. Anesthesia Assessment and Plan Anesthesia History Personal History: No History of Anesthesia Complications Family History: No Family History of Anesthesia Complications Exercise Tolerance Exercise Tolerance: Metabolic Equivalents>4 Pertinent Negatives Pertinent Negatives: No Symptoms of GERD, No Major Cardiovascular Symptoms or Complaints, No Major Pulmonary Symptoms or Complaints and No History of CVA/TIA Cardiac & Pulmonary Exam Cardiac Exam: Normal S1/S2 Heart Sounds Pulmonary Exam: Clear Bilateral Breath Sounds Implantable Cardiac Device Does patient have a Pacemaker or an ICD?: No Airway Exam Known Difficult Airway: No Mallampati Class: 2 Mouth Opening: Normal (> 3cm) Thyromental Distance: Greater than 3 cm Neck Range of Motion: Limited ROM Neck Circumference: Normal Teeth Condition: Normal Dentition ASA Classification ASA Score: ASA 2 Emergency Case?: No NPO Status NPO Status: NPO Clears >2 hours, Solids >8 hours Anesthesia Plan Resuscitation Status: Full Code Anesthesia Technique: General Anesthesia Airway Planned: Endotracheal Tube Pain Management: Surgeon and patient request nerve block Monitors Used: Standard Monitors
--- NOTE | 2024-09-18 07:11 | PDOC.DSDIS_ITS ---
Date of service: 09/18/24 Discharge Plan Disposition Patient Disposition: Home Condition: Stable Discharge Details Attending Provider: Derik Prieto Primary Care Provider: Constance Bourgeois Home Meds and New Rx's Prescriptions: New naproxen 250 mg tablet 250 - 500 mg PO BID PRN (Reason: moderate pain and swelling) Qty: 40 0RF oxycodone 5 mg tablet 5 - 10 mg PO .q4-6h MDD 30 mg PRN (Reason: severe pain) Qty: 18 0RF Continued multivitamin Tablet 1 tab PO DAILY albuterol sulfate 90 mcg/actuation HFA aerosol inhaler 2 puff inhalation Q6H PRN (Reason: shortness of breath or wheezing) Qty: 8.5 1RF Zyrtec 10 mg capsule 10 mg PO DAILY PRN Patient Comments: 3 months ago omega 0-exl-qgd-fish oil [Fish Oil] 60-90-500 mg capsule 1 cap PO DAILY albuterol sulfate 1.25 mg/3 mL solution for nebulization 1.25 mg inhalation QID PRN (Reason: shortness of breath or wheezing) Qty: 90 0RF Bio-K plus 50 billion cell capsule,delayed release(DR/EC) 1 cap PO DAILY Qty: 5 0RF Patient Comments: 2 months Rx Instructions: Take 3 hours before or 3 hours after antibiotics Discontinued ibuprofen 200 mg capsule 200 mg PO Q6H PRN tramadol 50 mg tablet 50 mg PO Q6H MDD 4 tablets PRN (Reason: pain) Qty: 30 0RF Discharge Instructions Additional Instructions: Surgery: Right shoulder arthroscopy with rotator cuff repair (supraspinatus & partial infraspinatus), biceps tenodesis, extensive debridement, and subacromial decompression. Activity: For 6 weeks, you should keep your arm at your side in a neutral position at all times except for physical therapy. Do not try to lift or raise your arm using your own muscles. You should use the sling whenever you are out of the house. At home it is best to remove the sling and rest the arm on a pillow at your side or support the operative side with your other hand. You may allow the arm to dangle at your side. A physical therapy prescription will be sent electronically to begin in about 3 weeks. CONSERVATIVE protocol. Prescriptions: Naproxen 250 mg take 1-2 every 12 hours with a meal as needed for moderate pain Oxycodone 5 mg take 1-2 every 4-6 hours as needed for severe pain You may use yunc-bme-eetgnig Tylenol (acetaminophen) as needed for mild pain. These pain medications may be taken all at once or in different combinations as needed. Also, recommend Colace (docusate) as a stool softener as surgery and pain medicine cause constipation. You may try dsoy-[id number] diphenhydramine (Benadryl) 25-50 mg nightly as a sleep aid Dressings: Remove shoulder bandage after 3 days. Leave the sticky Steri-Strips in place until they fall off or remove them after you shower. Cover the incisions with Band-Aids or leave them open to air. You may shower after 5 days. Follow-up: 10-[address] Prieto You may take off the leg compression stockings this evening at home. You may also leave them on a few days longer if you have a history of leg swelling or edema. Let us know right away if you develop any redness, drainage, fevers, chest pain, or trouble breathing. Do not drink alcohol or drive for at least 24 hours after anesthesia. Please call the office during business hours with any questions or concerns. Stand Alone Forms: Anesthesia Discharge Inst., Sophie.Nerve Block Instructions, Malou Ocasio ([facility]) Referrals: Derik Prieto MD [ [facility] STAFF PHYSICIAN, Orthopaedic Surgical] - 09/29/24 2:15 pm Discharge Orders Discharge Orders: Discharge Order (Routine); Ordered 09/18/24 Ordered By: Pratima Pierre DS: Diagnosis Discharge Diagnosis (1) Right rotator cuff tear: Status: Acute (2) Tendonitis of long head of biceps brachii of right shoulder: Status: Acute
--- NOTE | 2024-09-18 07:21 | W.PM.OP ---
Operative Note Operative Note PRE-OP DIAGNOSIS: Right: 1. Rotator cuff tear 2. LHB tendinopathy 3. Bursitis 4. Impingement POST-OP DIAGNOSIS: same PROCEDURE: Right: 1. Rotator cuff repair, CPT# 25848. This involved repair of the supraspinatus and infraspinatus using anchors and sutures to reattach the rotator cuff back to the footprint of the greater tuberosity. 2. Arthroscopic biceps tenodesis, CPT# 42759. This involved arthroscopically suturing and reattaching the long head of the biceps tendon to the proximal humerus at the superior margin of the bicipital groove with a screw at the correct tension. 3. Extensive debridement, CPT# 50720. This involved using arthroscopic hand instruments, power instruments, and radiofrequency instruments to release the long head of the biceps tendon and debride areas of labral tearing, SLAP tearing, synovitis, and chondromalacia central anterior glenoid working within the glenohumeral joint anteriorly, superiorly and posteriorly. 4. Subacromial decompression with partial acromioplasty, CPT# 32726. This involved using arthroscopic power instruments and a radiofrequency wand to complete a bursectomy and smooth the undersurface of the acromion. The microbiology lab assistant was medically required in order to help assist in techniques above, which require positioning the arm, holding the arthroscope, and manipulating multiple instruments and sutures at the same time. This cannot be done without the help of an experienced microbiology lab assistant. SURGEON: Derik Prieto PSYCHOLOGICAL ASSISTANT: Pratima Pierre ANESTHESIA TYPE: Local By Surgeon, General LMA/ETT and Primary Nerve Block Refer to Anesthesia Record ESTIMATED BLOOD LOSS: 10 PATHOLOGY: none sent COMPLICATIONS: None Patient was transported to: PACU Patient's condition: stable Implants: Arthrex: 4.75mm SwiveLocks x 5 Indications: The patient was diagnosed with the above conditions and appropriately indicated for surgical intervention. Please see complete medical record for details. Findings: Exam under anesthesia: Nearly full range of motion, no instability. Mild limitation to terminal forward elevation. Glenohumeral joint: Moderate central to anterior glenoid chondromalacia. Degenerative anterior and posterior labral tearing with the worst labral tearing and the SLAP tear region with moderately significant anterior superior and posterior synovitis. Intact subscapularis. Intact biceps tendon. Subacromial space: Moderate bursitis. Moderate subacromial space narrowing. Large complete and significantly retracted supraspinatus tendon tear with moderate lateral tendon remnant centrally to anteriorly. Partial leading anterior aspect infraspinatus tendon tearing at the junction of the supraspinatus tear. Moderate chondromalacia degenerative gutierrez labral tearing biceps split tearing and SLAP tear. Large complete supraspinatus moderate josé miguel significant retracted tear with some thickening and degeneration with partial infraspinatus tearing wrapping around beneath posteriorly. Moderately sized lateral tendon remnant. Working through the rotator cuff tear biceps tenodesis prepared and then secured to the anterior medial row SwiveLock anchor and then added knotless fixation excellent strength. A middle medial row anchor with fiber tapes and a posterior knotless anchor used to incorporate the infraspinatus simple stitch. The 3 medial tapes were then secured to 2 lateral row swivel lock anchors with an additional suture tape FiberLink cinch mode in the corner reduction of the supraspinatus to the infraspinatus tear. There was excellent fixation strength. Good coverage posteriorly centrally and less coverage anteriorly where there was less cuff mobility and more lateral tissue remnant removed. Procedure Description: In the operating room, general anesthesia was induced. Bilateral shoulders were examined. The patient was positioned in the beachchair position. All bony prominences were well-padded. Preoperative antibiotics were administered. The shoulder was prepped and draped in the usual sterile fashion. The correct patient, procedure, and side of the procedure were all verified prior to incision. Starting through the posterior portal a standard complete diagnostic arthroscopy was performed of the glenohumeral joint including inspection of the long head of the biceps, anterior and superior labrum, subscapularis tendon, supraspinatus and infraspinatus tendons, and axillary recess. The glenoid and humeral head cartilage as well as the posterior labrum were inspected from an superior anterior lateral viewing portal working through the full-thickness rotator cuff tear. Significant findings and interventions noted above. An all-arthroscopic suprapectoral biceps tenodesis was set up through the superior anterolateral portal using a Loop N Tack method with a SutureTape FiberLink cinched around and through the tendon. The biceps tendon was tenotomized from the superior labrum withdrawn out of the way for later repair with the rotator cuff. Arthroscope was redirected to the subacromial space and the lateral 50 yard line portal Kacie inserted and posterior superior lateral portal another passport inserted all established. Bursitis was resected laterally through medially and the undersurface of the acromion exposed and then smoothed with the shaver. The large expose greater tuberosity footprint was lightly decorticated and prepared to optimize bone and tendon healing. Arm position was confirmed as well as reduction of the large superficial rotator cuff tear from medial to lateral with more tissue coverage posteriorly after the moderate lateral to anterior tendon remnant was removed. The posterior edge reduction confirmed nicely to the infraspinatus which had partial tearing fraying. The anterior row anchors were established, 3 x 4.75 mm swivel locks were placed due to the large size of the tear. The anteriormost anchor contained the biceps tenodesis repair suture and the knotless mechanism from this anchor was placed through the biceps completing this repair. The posterior most anchor knotless repair suture was placed through the infraspinatus to secure it back to the greater tuberosity and reapposed with the supraspinatus repair. The 6 FiberTape tails were shuttled individually through the appropriate level of the supraspinatus tear medially. A fiber tape from each anchor was brought out laterally and secured to an anterior lateral row anchor. The remaining 3 tails and additional suture tape FiberLink placed through the posterior most tissue was secured to a posterior lateral row anchor. There was good reduction and tissue coverage especially posteriorly with more diminished tissue working anteriorly due to the lateral remnant removed and limited excursion. The repair was stable to probing and testing. The shoulder was drained of arthroscopic fluid. All portal sites were copiously irrigated. These incisions were closed using 3-0 Monocryl in a buried fashion and then covered with Mastisol, Steri-Strips, Xeroform, dry gauze, and ABDs. The dressings were covered and secured with Medipore tape. The operative extremity was placed into a sling for immobilization. The patient awoke from anesthesia without complication and was transferred to the recovery room in a stable condition. Date of Procedure: 09/18/24
--- NOTE | 2024-09-18 07:32 | W.ANESNERVE ---
Nerve Block Single Injection Procedure Date and Time Date Performed: 09/18/24 Procedure Start: 07:23 Location Where Procedure Performed Procedure Location: Day Surgery Unit Reason Performed: Postoperative Analgesia Requesting Provider: Derik Prieto Timeout Performed Timeout Performed: Yes Monitoring Used ECG, Blood Pressure, SpO2 and See EMR for corresponding vital signs Sterility Sterility: Hand Hygiene, Surgical Cap, Surgical Mask, Sterile Gloves and Chlorhexidine Sedation Given During Procedure Sedation Given (Indicate Dose Given): Versed IV Dose:: 2mg and Precedex IV Dose:: 8mcg Patient Mental Status Patient Mental Status: Sedate with meaningful communication Nerve Block 1st Nerve Block: Laterality: Right Block Type: Interscalene Ultrasound Image Saved?: Yes Needle / Catheter Used: 100mm SonoPlex II Local Anesthetic Bolus (Indicate Dose Given): Lidocaine used for local infiltration of skin, Injected in 3-5ml increments after negative blood aspiration, Bupivacaine 0.25% Dose:: 10mL and Exparel Dose:: 10mL Additives (Indicate Dose Given): None Ultrasound: Sterile probe cover and gel used Nerve Stimulator: Supplement to Ultrasound use and No twitch or parasthesia noted < 0.5 mA Paresthesia: Right Paresthesia Duration: Transient Procedure Tolerated: No Complications and Patient tolerated well Procedure Outcome: Successful Performed By: Delores Good Supervised By: Renato Coles
[2024-09-18] MEDS: ceFAZolin 3,000 MG in Normal Saline 100 ML 200 MG IV (07:52)
[2024-09-18] MEDS: TRANEXAMIC ACID/SOD. CHL. 1,000 MG/100 ML BAG 600 MG IVPB (07:52)
[2024-09-18] MEDS: Bupivacaine 0.25% Pres-Free W/EPI 30 ML VIAL (08:25)
[2024-09-18] MEDS: EPINEPHrine 10 MG/10 ML ML (10:22)
[2024-09-18] MEDS: HYDROmorphone 2 MG/ML SYR IVP ×2 (10:39→10:50)
--- NOTE | 2024-09-18 10:46 | W.ANESPOSTOP ---
Postoperative Evaluation Date, Time and Location Date Performed: 09/18/24 Time Performed: 10:45 Patient Location: PACU Vital Signs Most Recent Imported Vital Signs: Most Recent Vital Signs Temp Pulse Resp BP Pulse Ox 36.5 C 61 13 105/80 97 09/18/24 10:27 09/18/24 10:41 09/18/24 10:41 09/18/24 10:41 09/18/24 10:41 Pain Score Most Recent Pain Score: Most Recent Pain Score Pain Level 8 09/18/24 10:24 Assessment Mental Status: Awake (Alert & Oriented to Patient Baseline) Airway and Respiratory Function: Patent airway with normal (patient baseline) respiratory exam Cardiovascular Function: Hemodynamically Stable Hydration Status: Adequately Hydrated Nausea & Vomiting: No Nausea or Vomiting Pain: Pain is tolerable per patient (receiving PRN pain meds- see mar ) Peripheral Nerve Block: Regional nerve block not resolved at time of post operative discharge
[2024-09-18] MEDS: fentaNYL 100 MCG/2 ML VIAL IVP (11:04)
[2024-09-18] MEDS: oxyCODONE 5 MG TAB PO (12:08)
== END 2024-09-18 13:04 | disposition home or self-care (01) ==
PROVIDERS: PCP Nurse Practitioner Family; Visit Provider Student in an Organized Health Care Education/Training Program
PROC: (CPT 29827; principal; 2024-09-18 07:30)
DX: M75.101 Unspecified rotator cuff tear or rupture of right shoulder, not specified as traumatic (principal); M75.21 Bicipital tendinitis, right shoulder; M75.51 Bursitis of right shoulder; G89.18 Other acute postprocedural pain
CPT/HCPCS: 29827; 29828; 29823; 29826; 64415; J0131; J0665; J0666; J0690; J1100; J1171; J1885; J2003; J2250; J2371; J2405; J2704; J3010

== ENCOUNTER → 2024-12-14 02:10 | Outpatient (CLI) | payer BC, SELFPAY ==
--- NOTE | 2024-12-14 07:34 | DI.RAD_ITS ---
Exam(s) XR SHOULDER RT COMPLETE 2+V EXAM: XR SHOULDER RT COMPLETE 2+V CLINICAL HISTORY: R SHOULDER PAIN-S/P RTC REPAIR 09/18/24,m75.101. TECHNIQUE: 2D digital imaging was performed of the right shoulder. Five images were obtained. AP, Grashey, Y-view and axillary views were obtained. COMPARISON: CR XR SHOULDER RT COMPLETE 2+V from 08/25/2024 FINDINGS: BONES: No acute fracture is present. No bony destructive lesion is seen. JOINTS: No dislocation present. There are mild degenerative changes seen at both the acromioclavicular and glenohumeral joints. SOFT TISSUE: Normal. IMPRESSION: Mild degenerative changes of the right shoulder. DATA REPOSITORY: RADIATION DOSE DELIVERED:
== END ==
LOC: DI 02:10
PROVIDERS: PCP Nurse Practitioner Family; Visit Provider Student in an Organized Health Care Education/Training Program
DX: M19.011 Primary osteoarthritis, right shoulder (principal)
CPT/HCPCS: 73030

== ENCOUNTER → 2024-12-23 08:38 | Outpatient (CLI) | payer BC, SELFPAY ==
--- NOTE | 2024-12-23 13:35 | DI.MRI_ITS ---
Exam(s) MR UPPER JOINT RT WO EXAM: MR UPPER JOINT RT WO CLINICAL HISTORY: R SHOULDER PAIN, S/P RTC REPAIR 09/18/24 M75.101 TECHNIQUE: Multiplanar multisequence MRI of the shoulder was performed. COMPARISON: MR MR UPPER JOINT RT WO from 08/12/2024 CR XR SHOULDER RT COMPLETE 2+V from 08/25/2024 CR XR SHOULDER RT COMPLETE 2+V from 12/14/2024 FINDINGS: MARROW:There is no evidence of fracture, Hill-Sachs deformity, nor ominous osseous lesions. There is evidence of interval rotator cuff surgery with 4 fastener channels in the lateral humeral head now evident.. There is no abnormal intraosseous signal to suggest significant osseous related to these ortiz nnels. GLENOHUMERAL JOINT: Mild degenerative changes. No prominent joint effusion or loose intra-articular bodies. Small osteophyte on the inferior articular surface of the humeral head is noted. There are no degenerative subarticular cysts. ROTATOR CUFF MECHANISM: AC JOINT/ACROMIUM: Moderate degenerative changes again noted, similar to previous.. There is no evidence of os acromiale. Supraspinatus: There is artifact in the region of the tendon consistent with the recent surgery. There is some mild signal abnormality in the tendon but no evidence of high-grade tendon tear, as was evident on the August 2024 MRI study. There is a sliver of fluid in subacromial bursa space. No muscle atrophy. Infraspinatus: Mild increased signal at the musculotendinous junction. No high- grade tear. No atrophy. Teres Minor: Intact. No evidence of tear nor muscle atrophy. Subscapularis/anterior cuff: There is tendinitis signal in the multipennate fibers of the subscapularis tendon again noted no full-thickness tear. BICEPS TENDON: Appears intact in the intertubercular groove but intra-articular aspect absence reflects probable recent tenodesis at the humeral head level. No evidence of tear. LABRUM: Degenerative changes in the superior labrum, slightly more so than previous. Mild degenerative change in the posterior labrum. Deficiency of the anterior labrum is again noted and mild prominence of the middle glenohumeral ligament; may indicate an element of Sahil-type configuration. Inferior glenohumeral ligament appears intact QUADRILATERAL SPACE: No evidence of mass in the region of the axillary nerve and dorsal circumflex humeral vessels. Visualized triceps muscle at this level appears unremarkable. IMPRESSION: 1. Compared to the prior MRI of 08/12/2024 there has been interval rotator cuff surgery and probable biceps tenodesis. 2. There is some tendinitis signal supraspinatus tendon but no evidence of high- grade tear, as was previously present on the prior MRI scan. No muscle atrophy. 3. Mild tendinitis signal also seen in the subscapularis-anterior cuff. 4. There are degenerative changes in the labrum again noted. Also element of deficiency of the anterior labrum and slight prominence of the middle glenohumeral ligament which may indicate an element of Sahil-type configuration. 5. There are mild-moderate degenerative changes in the glenohumeral joint. No significant joint effusion and no loose intra-articular bodies evident. DATA REPOSITORY:
== END ==
LOC: DI 08:38
PROVIDERS: PCP Nurse Practitioner Family; Visit Provider Student in an Organized Health Care Education/Training Program
DX: M75.101 Unspecified rotator cuff tear or rupture of right shoulder, not specified as traumatic (principal)
CPT/HCPCS: 73221

== ENCOUNTER 2024-12-29 09:49 | Outpatient (CLI) | payer BC, SELFPAY ==
[2024-12-29 10:14] LABS: HCT 44.8 % (40.0-50.0); HGB 15.5 g/dL (13.5-17.5); MCH 30.8 pg (27.0-33.0); MCHC 34.6 % (32.0-36.0); MCV 89 fL (80-95); MPV 9.7 fL (8.0-11.0); Platelet Count 238 10^3/uL (130-400); RBC 5.03 10^6/uL (4.36-5.78); RDW 12.2 % (11.8-14.1); RDW-SD 40.3 fL; WBC 6.94 10^3/uL (4.4-10.8)
[2024-12-29 10:21] LABS: ESR 2 mm/hr (0-20)
[2024-12-29 12:50] LABS: C-Reactive Protein < 0.50 mg/dL (<=0.50)
== END 2024-12-29 09:50 | disposition home or self-care (01) ==
LOC: LBO 09:51
PROVIDERS: PCP Nurse Practitioner Family; Visit Provider Student in an Organized Health Care Education/Training Program
DX: M75.101 Unspecified rotator cuff tear or rupture of right shoulder, not specified as traumatic (principal)
CPT/HCPCS: 36415; 85027; 85652; 86140

== ENCOUNTER → 2025-01-14 00:47 | Outpatient (CLI) | payer BC, SELFPAY ==
--- NOTE | 2025-01-14 15:51 | DI.RAD_ITS ---
Exam(s) RF JOINT INJ. FLUORO GUID RAD EXAM: RF JOINT INJ. FLUORO GUID RAD CLINICAL HISTORY: PAIN,rt rotator cuff tear,m75.102,fluoro guided injection. TECHNIQUE: 2D and realtime digital imaging was performed. CONTRAST MATERIAL: Intra-articular Omnipaque 300-1.5 cc cc COMPARISON: Prior x-rays reviewed FINDINGS: This fluoroscopic guided right shoulder glenohumeral joint steroid injection was performed at the request of the referring orthopedic surgeon. This patient has had prior ipsilateral shoulder surgery. Patient was consented prior to this procedure. Patient was placed in the supine position on the fluoroscopy table. Using sterile technique and adequate skin-subcutaneous anesthesia, fluoroscopic guidance was used to advance a 22 gauge spinal needle into the glenohumeral joint via an anterior approach. Intra-articular position was confirmed with injection of 1.5 cc Omnipaque 300. Thereafter sterile solution of 40 milligrams Depo-Medrol and 3 cc 0.25 percent bupivacaine was injected into the joint. Needle was then removed and a Band-Aid applied. Patient tolerated this procedure well and there were no intraprocedural complications. IMPRESSION: Successful fluoroscopic guided steroid injection of the right shoulder glenohumeral joint. RADIATION DOSE DELIVERED: Ka,r=2.35mGy
[2025-01-14] MEDS: methylPREDNISolone ACETATE 40 MG/ML VIAL IM (15:52)
[2025-01-14] MEDS: Lidocaine 1% Pres-Free 30 ML VIAL IJ (15:53)
[2025-01-14] MEDS: Bupivacaine 0.25% Pres-Free 10 ML VIAL IJ (15:54)
[2025-01-14] MEDS: Omnipaque 300 MG/ML 10 ML BTL IJ (15:55)
== END ==
LOC: DI 00:47
PROVIDERS: PCP Nurse Practitioner Family; Visit Provider Student in an Organized Health Care Education/Training Program
DX: M75.101 Unspecified rotator cuff tear or rupture of right shoulder, not specified as traumatic (principal)
CPT/HCPCS: 20610; 77002; J0665; J1010

== ENCOUNTER 2025-01-21 12:38 | Emergency (ER) | payer BC, SELFPAY ==
[2025-01-21] VITALS (18 sets, daily range): BP systolic 146–178; BP diastolic 74–105; PULSE 63–88; RESP 18; TEMP 36.6; O2SAT 94–98
--- NOTE | 2025-01-21 13:15 | DI.RAD_ITS ---
Exam(s) XR SHOULDER RT COMPLETE 2+V EXAM: XR SHOULDER RT COMPLETE 2+V CLINICAL HISTORY: worsening pain after injection 1 week ago. TECHNIQUE: 2D digital imaging was performed. Four views. COMPARISON: CR XR SHOULDER RT COMPLETE 2+V from 12/14/2024 FINDINGS: BONES: No acute fracture is present. No bony destructive lesion is seen. JOINTS: No dislocation present. Spurring at the AC joint and undersurface of the acromion. Glenohumeral joint space shows mild narrowing and mild spurring. SOFT TISSUE: Normal. IMPRESSION: Degenerative changes. No acute abnormality. DATA REPOSITORY: RADIATION DOSE DELIVERED:
[2025-01-21] MEDS: fentaNYL 100 MCG/2 ML VIAL 50 MCG IVP (13:40)
[2025-01-21] MEDS: Acetaminophen 500 MG TAB 1000 MG PO (13:40)
--- NOTE | 2025-01-21 13:48 | OCONE_ITS ---
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 Unfortunately patient has had an increase of his right shoulder pain and weakness status post image guided intra-articular steroid injection on 01/14/2025. Patient states that severe global pain began about 12 hours after the injection and has not gotten any better. Severe constant pain at rest, worse with any movement, movement is very limited. Denies any injury. Right shoulder exam: Well-healed portal sites. Skin is intact without erythema or obvious deformity. Mild resolving ecchymosis about the anterior aspect at the injection site. Minimal global anterior swelling when compared to the contralateral side. Diminutive biceps resulting in lateral mid arm lump. No obvious Santhosh. Diffuse discomfort about the shoulder and proximal biceps. Active ROM yields forward flexion to be pseudo paralytic external rotation 5 degrees, internal rotation patient can reach contralateral flank. Passively can increase forward flexion to about 60 degrees, external rotation to about 10 degrees. Sensation intact throughout. Normal radial pulse and capillary refill. Recent lab work on 12/29/2024 reveals a white blood cell count of 6.94 ESR 2 CRP less than 0.50. Prior right shoulder x-rays from 12/14/2024 again reviewed, do not show any notable problems. Right shoulder MRI from 12/23/24 again reviewed shows probable intact with reasonably good healing of the large supraspinatus and partial infraspinatus rotator cuff repair with arthroscopic biceps tenodesis. Interpretation limited by some postsurgical artifact. Moderately significant glenohumeral chondromalacia still present. All 5 SwiveLock suture anchors appear in good position without loosening or failure. Stable mild supraspinatus atrophy and 7 mm of acromiohumeral interval. Patient had significant preoperative dysfunction and unfortunately has had a challenging postsurgical course. Recent infectious workup and MRI post surgery have all been encouraging. Will update infectious workup today and obtain x- ray. Differential includes but not limited to adhesive capsulitis, steroid flare, or infection. White blood cell count 9.98 ESR elevated 26 and CRP elevated at 6.74. Shoulder x-ray ordered and reviewed, reveals mild degenerative changes, unchanged from prior. No acute issues. Dr. Prieto addendum?aspiration no fluid. Remains concerning mostly for adhesive capsulitis, but indolent cutibacterium acnes infection, or more recent infection from steroid injection procedure possible. Given ongoing significant pain and dysfunction, recommend surgical intervention sooner than later. Will add the patient onto my OR schedule tomorrow, the next available time, for revision arthroscopy with lysis of adhesions/capsular release, obtain synovial/tissue samples for culture, and manipulation or anesthesia. PFSH All Active Problems Right rotator cuff tear (Acute) s/p Right shoulder arthroscopy with rotator cuff repair (supraspinatus & partial infraspinatus), biceps tenodesis, extensive debridement, and subacromial decompression 09/18/24 Abdominal pain increased with position change (Acute) Cellulitis (Acute) Scrotal pain (Acute) Epididymal cyst (Acute) Generalized skin lesions (Acute) PAF (paroxysmal atrial fibrillation) (Acute) Lipomatosis dolorosa (Acute) Lateral epicondylitis (Acute) Insomnia (Acute) Glucose intolerance (impaired glucose tolerance) (Acute) Walker-Don syndrome (Acute) [place] lesion of lung (Acute) COPD (chronic obstructive pulmonary disease) (Chronic) Cervical spondylosis (Acute) BPH without urinary obstruction (Acute) Benign lipomatous tumor (Acute) Actinic keratosis (Acute) MALATHI (obstructive sleep apnea) (Chronic) Wearing CPAP every night Hypercholesteremia (Acute) Medical History Elevated bilirubin Pleuritic pain Right shoulder pain Exposure to asbestos Left cornea abrasion Surgical History (Updated 09/29/24 @ 13:02 by Derik Prieto MD) Tendonitis of long head of biceps brachii of right shoulder H/O knee surgery History of colonoscopy (~07/2024) H/O hernia repair Hx of cholecystectomy Family History Mother Hypertension Father Cancer Social History Smoking/Tobacco Use Status: Former Tobacco Use tobacco type: cigarettes Quit Date: 02/11/99 Quit status: has quit before Smoking risk assessment performed?: Yes Alcohol Intake: current Alcohol Intake frequency: a few times a week Alcohol type: beer Drug use: Never Details: alcohol: t-1, one beer. Marijuana: 1 week, couple puffs Adopted: No Household members: spouse Housing: house Number of Children: 3 number of grandchildren: 0 Communication Needs: None Education Level: college Details: BS Do you need help understanding health information?: Never current occupation: Retired Sexually active: Yes Do you think of yourself as: straight/heterosexual Current gender identity: male What is your relationship status?: How often do you talk on the phone with friends or family?: three or more times per week How often do you get together with friends or relatives?: three or more times per week How often do you attend buddhist or holiness services?: 1-3 times per year Do you belong to any clubs or organized social groups?: no Panel score (0-1 are the most socially isolated patients): 2 What type of physical activity do you participate in: walking Duration: 45-60 minutes/day Frequency: daily Callie/Zoroastrian: Non restorationism Special callie needs: No Seatbelt use: always Helmet use: Yes Helmet use: always Drive intox or ride w/intox 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 1: Time out performed: Yes Side of body: right Joint aspirated: shoulder Ultrasound guidance: Yes Skin prep: Chlorhexidine Total fluid obtained (ml): 0 Medication injected, if any: Lidocaine Patient tolerated procedure: well Additional comments: He was placed in the left lateral decubitus position. There was excellent visualization of the posterior aspect of the right shoulder. The scapular spine and lateral acromion was palpated. The ultrasound was used for initial evaluation and assessment with excellent visualization of the humeral head and glenoid. The proposed needle entry site was marked on the skin. There was no apparent effusion. There was some density of the soft tissue seen adjacent to the humeral head but there was no significant elevation seen between the humeral head and the rotator cuff musculature. The skin was then wiped and prepped with Chloraprep. Ethyl chloride spray was used to anesthetize the skin of the proposed injection site. A 20g spinal needle was then inserted and followed with the ultrasound probe. The tract was taken to the posterior border of the humeral head just medial to the glenoid to avoid the labrum. There is exquisite pain upon entering the capsule of the shoulder. Once contact with the surface of the humeral head was made and visualization confirmed, attempted aspiration was performed. There was no fluid aspirated. Repositioning of the needle was attempted but unsuccessful. Then, approxi-5 cc of 2% lidocaine were injected without difficulty without resistance seeing elevation of the capsular tissues. Hemostasis was obtained. A Band-Aid was applied. Joint Injections Shoulder Joint Injection(s): Right Shoulder Indications: Arthritis (Shoulder pain and effusion) Visualized Structures: Humeral Head Findings/Impressions: Verbal consent obtained, Anatomical Landmarks palpated, Injection site marked, Skin prepped with chlorhexidine, Topical Anesthetic sprayed and Hemostasis achieved Shoulder Injection Billing: Exam Complete
[2025-01-21 13:56] LABS: Abs Immature Grans 0.02 10^3/uL (0.0-0.06); HCT 44.1 % (40.0-50.0); HGB 15.4 g/dL (13.5-17.5); Immature Grans % 0.2 %; MCH 31.2 pg (27.0-33.0); MCHC 34.9 % (32.0-36.0); MCV 90 fL (80-95); MPV 9.1 fL (8.0-11.0); Platelet Count 254 10^3/uL (130-400); RBC 4.93 10^6/uL (4.36-5.78); RDW 11.9 % (11.8-14.1); RDW-SD 38.6 fL; WBC 9.98 10^3/uL (4.4-10.8)
[2025-01-21 14:02] LABS: ESR 26 mm/hr (0-20)
[2025-01-21 14:16] LABS: C-Reactive Protein 6.74 mg/dL (<=0.50); Magnesium 2.1 mg/dL (1.6-2.6)
[2025-01-21 14:17] LABS: ALT 16 U/L (10-49); AST 16 U/L (<34); Albumin 4.6 g/dL (3.2-5.0); Alkaline Phosphatase 75 U/L (46-116); Anion Gap 9.3 mmol/L (3-11); BUN 11 mg/dL (9-23); Bilirubin, Total 1.3 mg/dL (0.2-1.2); CO2 25.7 mmol/L (20.0-31.0); Calcium 9.4 mg/dL (8.3-10.6); Chloride 104 mmol/L (98-107); Glucose 101 mg/dL (74-106); Potassium 3.8 mmol/L (3.5-5.1); Sodium 139 mmol/L (136-145); Total Protein 7.3 g/dL (5.7-8.2)
[2025-01-21] MEDS: MORPHine 10 MG/ML VIAL 2 MG IVP ×2 (15:13→15:24)
--- NOTE | 2025-01-21 15:59 | W.ED.GENAD ---
Discharge Plan Disposition Patient Disposition: Home Condition: Stable Discharge Details Clinical Impression: Adhesive capsulitis of right shoulder Primary Care Provider: oCnstance Bourgeois ED Provider: Julia Weathers Home Meds and New Rx's Prescriptions: No Action multivitamin Tablet 1 tab PO DAILY Zyrtec 10 mg capsule 10 mg PO DAILY PRN Patient Comments: 3 months ago omega 1-vba-xok-fish oil [Fish Oil] 60-90-500 mg capsule 1 cap PO DAILY albuterol sulfate 1.25 mg/3 mL solution for nebulization 1.25 mg inhalation QID PRN (Reason: shortness of breath or wheezing) Qty: 90 0RF albuterol sulfate 90 mcg/actuation HFA aerosol inhaler 2 puff inhalation Q6H PRN (Reason: shortness of breath or wheezing) Qty: 8.5 12RF Bio-K plus 50 billion cell capsule,delayed release(DR/EC) 1 cap PO DAILY Qty: 5 0RF Patient Comments: 2 months Rx Instructions: Take 3 hours before or 3 hours after antibiotics Discharge Instructions Instructions: Frozen Shoulder (DC) Additional Instructions: You were seen in our emergency department today for evaluation of pain, swelling, and stiffness of your right shoulder. In our department you do full physical examination performed, and an x-ray that showed some [id number] changes, but no new broken bones or other abnormalities. You had laboratory studies done that were quite reassuring, though we did note a mild elevation in the levels of your inflammatory markers. You were evaluated by orthopedics and had a procedure to attempt to remove fluid from your joint, and ultimately tomorrow will need to return to the hospital to have a procedure performed to improve your shoulder mobility. Please come to the day surgery area as instructed by Dr. Prieto. Please use therapeutic dosing of Tylenol (acetaminophen) & Advil (ibuprofen) in an alternating fashion as follows: Take 1000mg of Tylenol every 6 hours without missing doses- that is 4 times per day. Retirement in between the Tylenol doses, take 600mg of Advil also on a 6 hour schedule, that is also 4 times per day. With this strategy, you will be taking something for fever/pain as often as every 3 hours. The daily maximum dosing of Tylenol is 4000mg, and the daily maximum dosing of Advil is 2400mg. Please note that some common cold medications & prescription pain medications may contain acetaminophen and you need to read OTC drug labels and factor that in to maximum daily doses. I have provided you with a short course of oral morphine to use as needed for severe pain that does not respond to this strategy. Please use caution with driving, operating machinery, and other tasks that require attention as this medication can cause drowsiness. Do not mix this medication with alcohol. Please follow-up with your primary care provider in the next few days to discuss this visit and any symptoms that change, worsen, or persist. Thank you for allowing us to be part of your care. Stand Alone Forms: Portal Information Referrals: Derik Prieto MD [ [facility] STAFF PHYSICIAN, Orthopaedic Surgical] - 1 day HPI General Mode of arrival: ambulatory. Date/Time Provider Initiated Documentation: 01/21/25 12:52. Limitations to Documentation: no limitations. Information obtained by: patient, RN/MD and old records reviewed. HPI Narrative: This is a 64-year-old male patient status post right shoulder rotator cuff surgery, complicated by more pain and stiffness. He is presenting for worsening pain, stiffness, and night sweats for the last several days, in the context of having a cortisone injection in the right shoulder about 1 week ago. The patient states that he started to develop worsening pain almost immediately after the injection, has noted some swelling of that shoulder and decreased range of motion. Denies numbness, tingling, or weakness distal to the injury but is unable to move due to shoulder stiffness. Has not measured a fever at home, but does note that he has been having some sweats at night which is not typical for him. The patient reports that he manages his pain at home primarily with Tylenol and ibuprofen. He did have an MRI and labs which were reassuring approximately 2 weeks ago. Related Data Home Medications ?Medication ?Instructions ?Recorded ?Confirmed multivitamin 1 tab PO DAILY 07/23/23 01/21/25 albuterol sulfate 1.25 mg/3 mL 1.25 mg (3 mL) inhalation QID PRN 10/11/23 01/21/25 solution for nebulization shortness of breath or wheezing #90 mL omega 7-rcr-fru-fish oil 60 mg-90 1 cap PO DAILY 12/03/23 01/21/25 mg-500 mg capsule (Fish Oil) L. acidophilus,casei,rhamnosus 50 1 cap PO DAILY #5 caps 01/09/24 01/21/25 billion cell capsule,delayed release (Bio-K plus) cetirizine 10 mg capsule (Zyrtec) 10 mg PO DAILY PRN 06/30/24 01/21/25 albuterol sulfate 90 mcg/actuation 2 puff inhalation Q6H PRN 01/05/25 01/21/25 aerosol inhaler shortness of breath or wheezing #8.5 grams Previous Rx's ?Medication ?Instructions ?Recorded albuterol sulfate 1.25 mg/3 mL 1.25 mg (3 mL) inhalation QID PRN 10/11/23 solution for nebulization shortness of breath or wheezing #90 mL L. acidophilus,casei,rhamnosus 50 1 cap PO DAILY #5 caps 01/09/24 billion cell capsule,delayed release (Bio-K plus) albuterol sulfate 90 mcg/actuation 2 puff inhalation Q6H PRN 01/05/25 aerosol inhaler shortness of breath or wheezing #8.5 grams Allergies Allergy/AdvReac Type Severity Reaction Status Date / Time No Known Allergies Allergy Verified 01/21/25 12:50 General Stated Complaint: Cellulitis JOAO: 3 Exam Narrative Exam Narrative: Gen: Awake and alert, in no apparent distress HEENT: Non-icteric sclera Neck: Supple Lungs: No apparent respiratory distress, normal respiratory effort. CV: Appears well perfused Abdomen: Non-distended MSK: Moves 4 extremities without apparent limitation in ROM with the exception of the right upper extremity at the level of the shoulder. The patient has extremely limited range of motion actively and passively, with significant pain after just 10 to 20 degrees of flexion or abduction. The injection site has a small bruise around it but no erythema, induration, or evidence of purulent drainage. The skin is not excessively warm, though there is some mild swelling and a general distribution overlying the right shoulder. Skin: Visualized skin without rashes, cyanosis. Neuro: Normal Gait, no obvious focal deficits or facial asymmetry. Speaks in full, clear sentences. Psych: Appropriate for situation. Course Vital Signs Vital signs: Vital Signs Temperature 36.6 C 01/21/25 12:48 Pulse 74 01/21/25 12:48 Respiratory Rate 18 01/21/25 12:48 Blood Pressure 171/81 H 01/21/25 12:48 Pulse Oximetry 95 01/21/25 12:48 Temperature 36.6 C 01/21/25 12:51 Pulse 72 01/21/25 15:20 Respiratory Rate 18 01/21/25 15:05 Blood Pressure 161/77 H 01/21/25 15:16 Blood Pressure Mean 107 01/21/25 15:16 Pulse Oximetry 96 01/21/25 15:20 Oxygen Delivery Method Room Air 01/21/25 15:05 Oxygen Flow Rate 0 01/21/25 15:05 Pain Level 5 01/21/25 15:05 Lab/Test Results Lab/Test Results: 01/21/25 15:08 Synovial - Right Joint Body Fluid Culture - Pending 01/21/25 15:08 Synovial - Right Joint Gram Stain - Pending Laboratory Tests Range/Units 01/21/25 13:45 WBC (4.4-10.8) 10^3/uL 9.98 RBC (4.36-5.78) 10^6/uL 4.93 Hgb (13.5-17.5) g/dL 15.4 Hct (40.0-50.0) % 44.1 MCV (80-95) fL 90 MCH (27.0-33.0) pg 31.2 MCHC (32.0-36.0) % 34.9 RDW (11.8-14.1) % 11.9 Plt Count (130-400) 10^3/uL 254 MPV (8.0-11.0) fL 9.1 Immature Gran % % 0.2 Neutrophils % % 72.7 Lymphocytes % % 17.0 Monocytes % % 6.6 Eosinophils % % 3.2 Basophils % % 0.3 Nucleated RBC % (0.0-0.3) % 0.0 Absolute Neutrophils (1.2-6.7) 10^3/uL 7.25 H Absolute Lymphocytes (1.2-3.4) 10^3/uL 1.70 Absolute Monocytes (0.1-0.8) 10^3/uL 0.66 Absolute Eosinophils (0.0-0.7) 10^3/uL 0.32 Absolute Basophils (0.0-0.2) 10^3/uL 0.03 ESR (0-20) mm/hr 26 H Sodium (136-145) mmol/L 139 Potassium (3.5-5.1) mmol/L 3.8 Chloride (98-107) mmol/L 104 Carbon Dioxide (20.0-31.0) mmol/L 25.7 Anion Gap (3-11) mmol/L 9.3 BUN (9-23) mg/dL 11 Creatinine (0.73-1.18) mg/dL 0.69 L Est GFR (CKD-EPI 2020) (mL/min/1.73m2) 114.54 Glucose (74-106) mg/dL 101 Calcium (8.3-10.6) mg/dL 9.4 Magnesium (1.6-2.6) mg/dL 2.1 Total Bilirubin (0.2-1.2) mg/dL 1.3 H AST (<34) U/L 16 ALT (10-49) U/L 16 Alkaline Phosphatase (46-116) U/L 75 C-Reactive Protein (<=0.50) mg/dL 6.74 H Total Protein (5.7-8.2) g/dL 7.3 Albumin (3.2-5.0) g/dL 4.6 Medical Decision Making This is a 64-year-old male patient presenting for evaluation of worsening right shoulder pain. Differential includes but is not limited to adhesive capsulitis, septic arthritis, postsurgical complications, degenerative joint disease, calcific tendinitis. The patient's night sweats are quite a concerning history finding, though he is reassuringly today without fever, chills, or tachycardia. I have a low concern for systemic illness such as sepsis or bacteremia at this time. I will obtain an x-ray and labs to include CBC, CMP, magnesium, and inflammatory markers. I will consult orthopedics given their recent evaluation of this patient. -I independently interpreted the laboratory studies, which show no significant leukocytosis, anemia, or thrombocytopenia. The chemistry panel is without evidence of electrolyte abnormality, kidney dysfunction, or liver injury. The patient has a very modestly elevated ESR to 26, and a CRP of 6.7. Orthopedics evaluated the patient at bedside, and did perform an arthrocentesis, with minimal fluid aspirated. Ultimately, they feel that this patient would benefit from surgical intervention tomorrow, with revision arthroscopy, lysis of adhesions, synovial samples for culture, and manipulation under anesthesia. The patient will be discharged tonight with multimodal pain management and I provided him with a short course of oral morphine for breakthrough pain overnight. At this time, the patient has had a full medical evaluation and is safe for discharge to home. They are hemodynamically stable, ambulatory, and tolerating PO. They are understanding of the follow-up plan and return precautions. They left our facility without incident. Julia Weathers MD [facility] All Active Problems (Updated 01/21/25 @ 16:10 by Julia Weathers MD) Adhesive capsulitis of right shoulder (Acute) Right rotator cuff tear (Acute) s/p Right shoulder arthroscopy with rotator cuff repair (supraspinatus & partial infraspinatus), biceps tenodesis, extensive debridement, and subacromial decompression 09/18/24 Abdominal pain increased with position change (Acute) Cellulitis (Acute) Scrotal pain (Acute) Epididymal cyst (Acute) Generalized skin lesions (Acute) PAF (paroxysmal atrial fibrillation) (Acute) Lipomatosis dolorosa (Acute) Lateral epicondylitis (Acute) Insomnia (Acute) Glucose intolerance (impaired glucose tolerance) (Acute) Walker-Don syndrome (Acute) [place] lesion of lung (Acute) COPD (chronic obstructive pulmonary disease) (Chronic) Cervical spondylosis (Acute) BPH without urinary obstruction (Acute) Benign lipomatous tumor (Acute) Actinic keratosis (Acute) MALATHI (obstructive sleep apnea) (Chronic) Wearing CPAP every night Hypercholesteremia (Acute) Medical History (Updated 01/21/25 @ 16:10 by Julia Weathers MD) Elevated bilirubin Pleuritic pain Right shoulder pain Exposure to asbestos Left cornea abrasion Surgical History (Updated 09/29/24 @ 13:02 by Derik Prieto MD) Tendonitis of long head of biceps brachii of right shoulder H/O knee surgery History of colonoscopy (~07/2024) H/O hernia repair Hx of cholecystectomy Family History Mother Hypertension Father Cancer Social History Smoking/Tobacco Use Status: Former Tobacco Use tobacco type: cigarettes Quit Date: 02/11/99 Quit status: has quit before Smoking risk assessment performed?: Yes Alcohol Intake: current Alcohol Intake frequency: a few times a week Alcohol type: beer Drug use: Never Details: alcohol: t-1, one beer. Marijuana: 1 week, couple puffs Adopted: No Household members: spouse Housing: house Number of Children: 3 number of grandchildren: 0 Communication Needs: None Education Level: college Details: BS Do you need help understanding health information?: Never current occupation: Retired Sexually active: Yes Do you think of yourself as: straight/heterosexual Current gender identity: male What is your relationship status?: How often do you talk on the phone with friends or family?: three or more times per week How often do you get together with friends or relatives?: three or more times per week How often do you attend gnosticist or zoroastrian services?: 1-3 times per year Do you belong to any clubs or organized social groups?: no Panel score (0-1 are the most socially isolated patients): 2 What type of physical activity do you participate in: walking Duration: 45-60 minutes/day Frequency: daily Callie/Protestant: Non jain Special callie needs: No Seatbelt use: always Helmet use: Yes Helmet use: always Drive intox or ride w/intox transit mixer driver: No Firearms in home: Yes Firearms unloaded and locked: Yes Do you feel safe at home: Yes Do you feel safe in your relationship?: Yes Additional Social history: [employer] Have you Been Recently Intoxicated or Drunk Within the Last 30 days?: No Have you Ever Experienced Previous Episodes of Alcohol Withdrawal?: No Have you ever Experienced Withdrawal Seizures?: No Have you ever Experienced Delirium Tremens(DT)s?: No Have you ever undergone Alcohol Rehabilitation Treatment (i.e, inpt ot outpatient treatment programs)?: No Have you ever Experienced Blackouts?: No Have you ever Combined Alcohol with other Downers within the last 90 days?: No Have you ever Combined Alcohol with any other Substance of Abuse during the last 90 days?: No Positive Blood Alcohol level on Presentation? [PCS.BAL]: No Evidence of Increased Autonomic Activity (i.e. HR>120, tremor, sweating, agitation, nausea)?: No Result: 0
[2025-01-21] MEDS: MORPHine IR 15 MG TAB, 4 TABS/BTL PO (16:42)
== END 2025-01-21 16:43 | disposition home or self-care (01) ==
PROVIDERS: Emergency Provider Emergency Medicine; PCP Nurse Practitioner Family
DX: M75.01 Adhesive capsulitis of right shoulder (principal)
CPT/HCPCS: 99284 ×2; 96374; 96375; 36415; 20610; 80053; 85652; 73030; 83735; 85025; 86140; 87070; 87205; J2270; J3010

== ENCOUNTER 2025-01-22 10:58 | Day surgery (SDC) | payer BC, SELFPAY ==
[2025-01-22] VITALS (19 sets, daily range): BP systolic 133–164; BP diastolic 65–87; PULSE 74–95; RESP 11–25; TEMP 36.1–37.2; O2SAT 91–99; BMI 27.7
--- NOTE | 2025-01-22 07:19 | W.PM.DSUDISC ---
Date of service: 01/22/25 Discharge Plan Disposition Patient Disposition: Home Condition: Stable Discharge Details Attending Provider: Derik Prieto Primary Care Provider: Constance Bourgeois Home Meds and New Rx's Prescriptions: New naproxen 250 mg tablet 250 - 500 mg PO BID PRN (Reason: moderate pain and swelling) Qty: 40 0RF oxycodone 5 mg tablet 5 - 10 mg PO .q4-6h MDD 30 mg PRN (Reason: severe pain) Qty: 18 0RF amoxicillin 500 mg capsule 500 mg PO TID 14 Days Qty: 42 0RF Bio-K plus 50 billion cell capsule,delayed release(DR/EC) 1 cap PO DAILY 14 Days Qty: 14 0RF Rx Instructions: Use while on antibiotic Continued multivitamin Tablet 1 tab PO DAILY Zyrtec 10 mg capsule 10 mg PO DAILY PRN Patient Comments: 3 months ago omega 4-uyx-xqa-fish oil [Fish Oil] 60-90-500 mg capsule 1 cap PO DAILY albuterol sulfate 1.25 mg/3 mL solution for nebulization 1.25 mg inhalation QID PRN (Reason: shortness of breath or wheezing) Qty: 90 0RF albuterol sulfate 90 mcg/actuation HFA aerosol inhaler 2 puff inhalation Q6H PRN (Reason: shortness of breath or wheezing) Qty: 8.5 12RF Discontinued Bio-K plus 50 billion cell capsule,delayed release(DR/EC) 1 cap PO DAILY Qty: 5 0RF Patient Comments: 2 months Rx Instructions: Take 3 hours before or 3 hours after antibiotics morphine 15 mg tablet extended release 15 mg PO Q8H ibuprofen [Advil] 200 mg tablet 400 mg PO TID Discharge Instructions Additional Instructions: Surgery: Right shoulder revision arthroscopy with lysis of adhesions, capsular release, and manipulation under anesthesia 01/22/25 Activity: You should gradually increase range of motion motion and use of your shoulder. Please perform daily stretching exercises. No heavy lifting, reaching overhead, or lifting away from body for about 6-8 weeks. Discontinue sling whenever nerve block wears off. Resume physical therapy within 1-2 weeks. Prescriptions: Amoxicillin 500 mg take 1 three times each day to prevent infection Probiotic or yogurt take 1 daily while on antibiotics Naproxen 250 mg take 1-2 every 12 hours with a meal as needed for moderate pain Oxycodone 5 mg take 1-2 every 4-6 hours as needed for severe pain You may use [id number] Tylenol (acetaminophen) as needed for mild pain. These pain medications may be taken all at once or in different combinations as needed. Also, recommend Colace (docusate) as a stool softener as surgery and pain medicine cause constipation. You may try ogos-wfy-[id number] diphenhydramine (Benadryl) 25-50 mg nightly as a sleep aid Dressings: Remove shoulder bandage after 3 days. Leave the sticky Steri-Strips in place until they fall off or remove them after you shower. Cover the incisions with Band-Aids or leave them open to air. You may shower after 5 days. Follow-up: 10-[address] Prieto You may take off the leg compression stockings this evening at home. You may also leave them on a few days longer if you have a history of leg swelling or edema. Let us know right away if you develop any redness, drainage, fevers, chest pain, or trouble breathing. Do not drink alcohol or drive for at least 24 hours after anesthesia. Please call the office during business hours with any questions or concerns. Stand Alone Forms: Portal Information Discharge Orders Discharge Orders: Discharge Order (Routine); Ordered 01/22/25 Ordered By: Pratima Pierre DS: Diagnosis Discharge Diagnosis (1) Adhesive capsulitis of right shoulder: Status: Acute
--- NOTE | 2025-01-22 07:53 | W.PM.OP ---
Operative Note Operative Note PRE-OP DIAGNOSIS: 1. Right shoulder stiffness/adhesive capsulitis after rotator cuff and biceps surgery 2. Possible glenohumeral joint infection POST-OP DIAGNOSIS: same PROCEDURE: Right shoulder: 1. 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 Please see complete medical record for details. Findings: Exam under anesthesia: Fairly rigid stiffness about 0 degrees of external rotation and 90 degrees of forward elevation. Glenohumeral joint: Significant synovitis and anterior and inferior capsular thickening and adhesions. Intact subscapularis. Largely intact supraspinatus infraspinatus articular sided repair with mild lift off and a few small areas along the articular margin. Stable moderate glenohumeral chondromalacia. Subacromial space: Significant recurrent bursitis and adhesions. Intact bursal rotator cuff. Rotator cuff repair sutures well covered and healed and rotator cuff. Procedure Description: In the operating room, general anesthesia was induced. Bilateral shoulders were examined. The correct patient, procedure, and site of the procedure were all verified prior to beginning. The right shoulder was examined with range of motion about 90 degrees forward elevation and 0 degrees external rotation. Internal rotation at about 90 degrees maybe 45 degrees, abduction barely 90 degrees. These endpoints had firm, stiff feel. A short lever arm and gradual to steady gentle pressure was used to perform the manipulation alternating between external rotation at the side, forward elevation, and abduction with internal and external rotation. Deliberately gradually and carefully excellent releases were felt in forward elevation and external rotation. Less release needed in abduction and internal rotation. Range of motion was then tested and full. All endpoints were gently exaggerated. The shoulder joint remained stable. While the patient remained under anesthesia, all directions were stretched and repeated numerous times. The patient was then positioned in the beachchair position. All bony prominences were well-padded. Preoperative antibiotics were administered. The shoulder was prepped and draped in the usual sterile fashion. Previous anterior lateral and posterior portals were preinjected with 0.25% bupivacaine containing epinephrine. The previous posterior and anterior portals were opened and the glenohumeral joint was evaluated. The hemorrhagic synovitis and clots from the manipulation were evacuated. Care was taken to inspect the prior articular sided rotator cuff for repair integrity, which tested largely and intact especially considering the larger repair. There was significant thickening of the anterior capsule on [facility] L. The axillary recess was difficult to access due to capsulitis. Subscapularis was intact. There was stable glenohumeral chondromalacia. There was no overt sign of infection. I did not visualize any steroid deposit type material. About 4 L of saline were irrigated through the glenohumeral joint while a thorough meticulous lysis of adhesions was done as well as releasing the anterior capsule and [facility] L with arthroscopic scissors and using a radiofrequency ablator to debride adhesions between the labrum and capsule and along the released capsule to prevent recurrence. After the glenohumeral joint was well debrided and had good hemostasis, the arthroscope was redirected from posterior into the subacromial space the entry portal was also redirected into the subacromial space. There was notable recurrent bursitis and some subacromial adhesions which were readily debrided with the shaver and ablator. The rotator cuff showed good motion through testing and the repair seemed overall intact with the repair sutures well covered up and healed tissue. An additional 2 L were irrigated through the debridement of the subacromial space for a total of 6 L in case this were truly an infection. The shoulder was drained of arthroscopic fluid. All portal sites were copiously irrigated. These incisions were closed using 3-0 Monocryl in a buried fashion and then covered with Mastisol, Steri-Strips, Xeroform, dry gauze, and ABDs. The dressings were covered and secured with Medipore tape. The operative extremity was placed into a sling for immobilization. The patient awoke from anesthesia without complication and was transferred to the recovery room in a stable condition. Date of Procedure: 01/22/25
[2025-01-22] MEDS: Lactated Ringers 1,000 ML 30 ML IV (12:20)
--- NOTE | 2025-01-22 12:23 | W.ANESPRE ---
General Info Date of Service Date Performed: 01/22/25 Height: 6 ft 2 in Weight: 97.9 kg Body Mass Index (BMI): 27.7 Surgical Procedure: Operation Date: 01/22/25 13:55 Proposed Procedure Side Surgeon p Shoulder Arthroscopy, Lysis of Adhesions/Capsular Release w/Manipulation Right Derik Prieto MD Meds Allergies and Home Medications Allergies Allergy/AdvReac Type Severity Reaction Status Date / Time No Known Allergies Allergy Verified 01/22/25 11:22 Home Medication ?Medication ?Instructions ?Recorded multivitamin 1 tab PO DAILY 07/23/23 albuterol sulfate 1.25 mg/3 mL 1.25 mg (3 mL) inhalation QID PRN 10/11/23 solution for nebulization shortness of breath or wheezing #90 mL omega 4-cvn-zek-fish oil 60 mg-90 1 cap PO DAILY 12/03/23 mg-500 mg capsule (Fish Oil) L. acidophilus,casei,rhamnosus 50 1 cap PO DAILY #5 caps 01/09/24 billion cell capsule,delayed release (Bio-K plus) cetirizine 10 mg capsule (Zyrtec) 10 mg PO DAILY PRN 06/30/24 albuterol sulfate 90 mcg/actuation 2 puff inhalation Q6H PRN 01/05/25 aerosol inhaler shortness of breath or wheezing #8.5 grams ibuprofen 200 mg tablet (Advil) 400 mg PO TID 01/22/25 morphine 15 mg tablet,extended 15 mg PO Q8H 01/22/25 release Current Visit Medications: Current Medications Generic Name Dose Route Start Last Admin Trade Name Freq PRN Reason Stop Dose Admin Ringer's Solution 1,000 mls @ 30 mls/hr 01/22/25 06:00 IV 01/22/25 23:59 INFUSION RADHA Cefazolin Sodium/Dextrose 2 gm in 50 mls @ 100 mls/hr 01/22/25 06:00 Ancef Duplex IVPB 01/22/25 23:59 PREOP RADHA Tranexamic Acid/Sodium Chloride 1,000 mg in 100 mls @ 600 mls/hr 01/22/25 06:00 IVPB 01/22/25 23:59 PREOP RADHA Oxycodone HCl 0 mg 01/22/25 07:19 Oxycodone 5 Mg Tab PO 01/11/26 07:18 Q3H PRN PRN Pain Sodium Chloride 0 ml 01/22/25 06:00 Normal Saline Flush 10 Ml Syr IV 01/22/25 23:59 PRN PRN Sodium Chloride 0 ml 01/22/25 06:00 Normal Saline 10 Ml Vial IJ 01/22/25 23:59 DIRECTED PRN Sterile Water 0 ml 01/22/25 06:00 Water,Injection,Sterile 10 Ml Vial IJ 01/22/25 23:59 DIRECTED PRN PFSH Active Problems Active Problems: Problem Status Onset Code Adhesive capsulitis of right shoulder Acute M75.01 Right rotator cuff tear Acute M75.101 Abdominal pain increased with position change Acute R10.9 Cellulitis Acute L03.90 Scrotal pain Acute N50.82 Epididymal cyst Acute N50.3 Generalized skin lesions Acute L98.9 PAF (paroxysmal atrial fibrillation) Acute 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 Lateral epicondylitis Acute M77.10 Insomnia Acute G47.00 Glucose intolerance (impaired glucose tolerance) Acute 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 [place] lesion of lung Acute R91.1 COPD (chronic obstructive pulmonary disease) Chronic J44.9 Cervical spondylosis Acute M47.812 BPH without urinary obstruction Acute N40.0 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 Actinic keratosis Acute L57.0 MALATHI (obstructive sleep apnea) Chronic G47.33 Hypercholesteremia Acute E78.00 Medical History Medical History Elevated bilirubin Pleuritic pain Right shoulder pain Exposure to asbestos Left cornea abrasion Surgical History Surgical History Tendonitis of long head of biceps brachii of right shoulder H/O knee surgery History of colonoscopy (~07/2024) H/O hernia repair Hx of cholecystectomy Tobacco Smoking/Tobacco Use Status: Former Tobacco Use Passive smoking exposure: Yes Alcohol Alcohol Intake: current Alcohol intake frequency: a few times a week Alcohol type: beer Substance Use Substance use: Never Details: alcohol: t-1, one beer. Marijuana: 1 week, couple puffs Vital Signs and Lab Results Vital Signs Most Recent Vital Signs in EMR: Most Recent Vital Signs Temp Pulse Resp BP Pulse Ox 36.6 C 88 18 133/87 98 01/22/25 11:03 01/22/25 11:03 01/22/25 11:03 01/22/25 11:03 01/22/25 11:03 Lab Results Complete Blood Count: WBC, (4.4-10.8) 9.98 10^3/uL 01/21/25, 13:45 RBC, (4.36-5.78) 4.93 10^6/uL 01/21/25, 13:45 Hgb, (13.5-17.5) 15.4 g/dL 01/21/25, 13:45 Hct, (40.0-50.0) 44.1 % 01/21/25, 13:45 Plt Count, (130-400) 254 10^3/uL 01/21/25, 13:45 Complete Metabolic Panel: Sodium, (136-145) 139 mmol/L 01/21/25, 13:45 Potassium, (3.5-5.1) 3.8 mmol/L 01/21/25, 13:45 Chloride, (98-107) 104 mmol/L 01/21/25, 13:45 Carbon Dioxide, (20.0-31.0) 25.7 mmol/L 01/21/25, 13:45 BUN, (9-23) 11 mg/dL 01/21/25, 13:45 Creatinine, (0.73-1.18) 0.69 mg/dL L 01/21/25, 13:45 Est GFR (CKD-EPI 2020), (mL/min/1.73m2) 114.54 01/21/25, 13:45 Magnesium, (1.6-2.6) 2.1 mg/dL 01/21/25, 13:45 Calcium, (8.3-10.6) 9.4 mg/dL 01/21/25, 13:45 Albumin, (3.2-5.0) 4.6 g/dL 01/21/25, 13:45 Glucose, (74-106) 101 mg/dL 01/21/25, 13:45 C-Reactive Protein, (<=0.50) 6.74 mg/dL H 01/21/25, 13:45 Liver Function Panel: ALT, (10-49) 16 U/L 01/21/25, 13:45 AST, (<34) 16 U/L 01/21/25, 13:45 Imaging and Studies Imaging and Studies Study information below may be from another EMR and interpreted by another provider. Please see original notes in EMR for more complete details. Stress Test Summary: august 2023 Stress ECG Conclusion 1. Resting electrocardiogram was normal 2. Patient exercised on the Adam protocol and completed workload of 11.24 METS 3. Normal heart rate and blood pressure response to exercise. The patient achieved 87% of predicted heart rate for age 4. There was no electrocardiographic evidence of myocardial ischemia 5. There were no significant dysrhythmias Gary Treadmill Score is 9.5 which is Low risk. Anesthesia Assessment and Plan Anesthesia History Personal History: No History of Anesthesia Complications Family History: No Family History of Anesthesia Complications Exercise Tolerance Exercise Tolerance: Metabolic Equivalents>4 Cardiac & Pulmonary Exam Cardiac Exam: Normal S1/S2 Heart Sounds Pulmonary Exam: Clear Bilateral Breath Sounds Implantable Cardiac Device Does patient have a Pacemaker or an ICD?: No Airway Exam Known Difficult Airway: No Mallampati Class: 2 Mouth Opening: Normal (> 3cm) Thyromental Distance: Greater than 3 cm Neck Range of Motion: Limited ROM Neck Circumference: Normal Teeth Condition: Normal Dentition ASA Classification ASA Score: ASA 2 Emergency Case?: No NPO Status NPO Status: NPO Clears >2 hours, Solids >8 hours Anesthesia Plan Resuscitation Status: Full Code Anesthesia Technique: General Anesthesia Airway Planned: Endotracheal Tube Pain Management: Surgeon and patient request nerve block Monitors Used: Standard Monitors Preoperative Comments:: 64 yo for shoulder scope. Sig PMHx: PAFib, COPD (albuterol), MALATHI, Former smoker, Occ EtOH/cannabis. Previous Anes: - shoulder scope, prop, glide 3 grade 2 a, no issues. blocked with midaz/dex, 10 0.5 and exparel. - colo, prop, natural airway, no issues.
--- NOTE | 2025-01-22 13:11 | ANES.NERVE_ITS ---
Nerve Block Single Injection Procedure Date and Time Date Performed: 01/22/25 Procedure Start: 13:04 Location Where Procedure Performed Procedure Location: Day Surgery Unit Reason Performed: Postoperative Analgesia Requesting Provider: Derik Prieto Timeout Performed Timeout Performed: Yes Monitoring Used ECG, Blood Pressure and SpO2 Sterility Sterility: Hand Hygiene, Surgical Cap, Surgical Mask, Sterile Gloves and Chlorhexidine Sedation Given During Procedure Sedation Given (Indicate Dose Given): Versed IV (2 mg + 2 mg) Dose:: 4 mg Patient Mental Status Patient Mental Status: Sedate with meaningful communication Nerve Block 1st Nerve Block: Laterality: Right Block Type: Interscalene Ultrasound Image Saved?: Yes Needle / Catheter Used: 100mm SonoPlex II Local Anesthetic Bolus (Indicate Dose Given): Lidocaine used for local infiltration of skin, Bupivacaine 0.5% Dose:: 10 mL and Exparel Dose:: 10 mL Additives (Indicate Dose Given): None Ultrasound: Sterile probe cover and gel used Nerve Stimulator: Supplement to Ultrasound use and No twitch or para sthesia noted < 0.5 mA (0.6 mA) Paresthesia: None Procedure Tolerated: No Complications Procedure Outcome: Successful Performed By: Johnny Julian
[2025-01-22] MEDS: ceFAZolin 2 GM/50 ML BAG IVPB (14:27)
[2025-01-22] MEDS: TRANEXAMIC ACID/SOD. CHL. 1,000 MG/100 ML BAG 600 MG IVPB (14:35)
[2025-01-22] MEDS: Bupivacaine 0.25% Pres-Free W/EPI 30 ML VIAL (15:08)
[2025-01-22] MEDS: EPINEPHrine 10 MG/10 ML ML (15:32)
--- NOTE | 2025-01-22 16:10 | W.ANESPOSTOP ---
Postoperative Evaluation Date, Time and Location Date Performed: 01/22/25 Time Performed: 16:10 Patient Location: PACU Vital Signs Most Recent Imported Vital Signs: Most Recent Vital Signs Temp Pulse Resp BP Pulse Ox 36.6 C 84 23 145/65 H 95 01/22/25 15:55 01/22/25 15:56 01/22/25 15:56 01/22/25 15:55 01/22/25 15:56 Pain Score Most Recent Pain Score: Most Recent Pain Score Pain Level 2 01/22/25 12:58 Assessment Mental Status: Awake (Alert & Oriented to Patient Baseline) Airway and Respiratory Function: Patent airway with normal (patient baseline) respiratory exam Cardiovascular Function: Hemodynamically Stable Hydration Status: Adequately Hydrated Nausea & Vomiting: No Nausea or Vomiting Pain: Pain is tolerable per patient Peripheral Nerve Block: Regional nerve block not resolved at time of post operative discharge
[2025-01-22] MEDS: HYDROmorphone 2 MG/ML SYR IVP (16:11)
[2025-01-22] MEDS: oxyCODONE 5 MG TAB PO (17:04)
== END 2025-01-22 17:58 | disposition home or self-care (01) ==
PROVIDERS: PCP Nurse Practitioner Family; Visit Provider Student in an Organized Health Care Education/Training Program
PROC: (CPT 29805; principal; 2025-01-22 13:45)
DX: M75.01 Adhesive capsulitis of right shoulder (principal); M75.101 Unspecified rotator cuff tear or rupture of right shoulder, not specified as traumatic; Z98.890 Other specified postprocedural states; J44.9 Chronic obstructive pulmonary disease, unspecified; G47.33 Obstructive sleep apnea (adult) (pediatric)
CPT/HCPCS: 29825; 64415; 87070; 87075; 87205; J0131; J0665; J0666; J0690; J1100; J1171; J2250; J2371; J2405; J2704